=== PATIENT | male | born 1955 | race African-American/Black ===

== ENCOUNTER 2017-03-25 19:12 | Inpatient (IN) ==
[2017-03-25] MEDS ORDERED: cefTRIAXone 1,000 MG in SODIUM CHLORIDE 0.9% 100 ML IV STA (20:40)
[2017-03-25] MEDS ORDERED: methylPREDNISolone SOD SUC 125 MG/2 ML VIAL IV STA (20:40)
[2017-03-25] MEDS ORDERED: FUROSEMIDE 100 MG/10 ML VIAL IV STA (20:40)
[2017-03-25 20:49] LABS: Basophils % 0.4 % (0.0-0.8); Eosinophils # 0.1 10*3/uL (0.0-0.87); Eosinophils % 1.8 % (0.00-10.9); Hematocrit 36.2 VOL% (42.0-52.0); Hemoglobin 11.9 GM/DL (14.0-18.0); Immature Granulocytes % 0.4 %; Immature Granulocytes Absolute 0.02 #; Lymphocytes # 0.7 10*3/uL (1.4-4.0); Lymphocytes % 13.5 % (21.2-54.2); Mean Corpuscular HGB Conc 32.9 GM/DL (32-36); Mean Corpuscular Hemoglobin 31 PG (27-34); Mean Corpuscular Volume 93.5 FL (87-102); Mean Platelet Volume 11.3 FL (9.6-12.0); Monocytes # 0.9 10*3/uL (0.11-0.8); Monocytes % 17.4 % (1.7-12.7); Neutrophils # 3.3 10*3/uL (1.4-7.4); Neutrophils % 66.5 % (38.7-73.9); Platelet Count 125 T/CUMM (130-400); Red Blood Count 3.87 MC/CUMM (3.8-5.5); Red Cell Distribution Width 17.4 % (9.3-17.3)
[2017-03-25 20:55] LABS: INR 1.3; PT Patient Result 13.6 SECS
--- NOTE | 2017-03-25 20:56 | XRay Report ---
XR chest 1V portable Indication: Shortness of breath Comparison: Chest x-ray 03/22/2017 Technique: Portable AP chest was performed. Findings: Since the comparison study, there is been interval increase in opacity within the right infrahilar lung as well as interval development of right-sided pleural effusion. Size of the right-sided pleural effusion is moderate. Left lung is clear. Heart size is likely minimally enlarged. Impression: 1. Interval development of right-sided pleural effusion. 2. Airspace opacities right infrahilar lung could reflect evidence of infection and/or atelectasis. 03/25/2017 8:52 PM PROCEDURE INTERPRETED AT [facility] DEPARTMENT OF RADIOLOGY Final Report Signed by: Dr. Ray Mckay
[2017-03-25] MEDS ORDERED: ALBUTEROL 2.5 MG/3 ML NEB RESP TX SCH (21:00)
--- NOTE | 2017-03-25 21:01 | Emergency Department Note ---
IOmid Emily, am scribing for, and in the presence of, Luis Alberto Scruggs MD 20: 39. ISheba Charles R, MD, personally performed the services described in this documentation, ascribed by Kelly Anne in my presence, and it is both accurate and complete . Arrival - Arrival Chief Complaint: Shortness of Breath Stated Complaint: SOB ED Nursing Triage Note: Patient to triage with c/o SOB that started this morning. Patient is dialysis patient. Last dialysis was yesterday and was 4 lbs away from dry weight, and they told him to come for another round today but the dialysis clinic did not have any available seats when patient went to clinic. Patient's home health nurse instructed him to report to ED if SOB did not resolve. Lungs CTA in triage but patient is SOB, and worse when speaking. BLE edema noted. Mode of Arrival: Wheelchair Limitations: No Limitations Source: Patient Time Seen by Provider: 03/25/17 20:08 - History of Present Illness HPI Narrative: Pt is a 61 y/o male who came to ED with c/o SOB and wheezing that started Monday. Pt was at dialysis yesterday but didn't get a chance to talk with Dr. Almeida when he came through, per pt. Pt has associated sxs of orthopnea, heavy sensation with breathing, little output, and swelling in lower extremities and abdomen, but denies taking any blood thinners. Pt admits to still smoking, but has decreased in past couple days. Pt's home health nurse advised pt to come to ED if not resolved or worsened. Onset (ago): day(s) Consistency: constant Severity: moderate Severity scale (1-10): 5 Quality: fullness Allergies/Adverse Reactions: Allergies Allergy/AdvReac Type Severity Reaction Status Date / Time No Known Allergies Allergy Verified 03/25/17 19:25 Home Medications: Home Medications Medication Instructions Recorded Confirmed Type Carvedilol [Coreg] 25 mg PO BID #60 tablet 09/18/15 03/25/17 Rx Calcium Acetate 667 mg PO TID W/MEALS 07/25/16 03/25/17 History Insulin Regular, Human [NovoLIN R] 2 unit SUBCUT BID 10/24/16 03/25/17 History Review of System - Review of System 12 point system: reviewed and no additional remarkable complaints except as stated - Review of System Constitutional: Absent: fever Head/Ears/Nose/Throat: Absent: nasal drainage Respiratory: Present: respiratory distress (SOB), wheezing. Absent: cough Cardiovascular: Present: orthopnea, edema (in legs and abdomen). Absent: chest pain, syncope Gastrointestinal: Present: other (little output). Absent: abdominal pain, nausea, vomiting Musculoskeletal: Absent: back pain Skin: Absent: rash Neurological: Absent: headache Medical,Surgical,& Family Hx - Medical History Cardio: History of: CHF, Hypertension Psychological: History of: Psychiatric/Substance Abuse Tx Comment Only: Behavior Problems (PT VERY MAD WHEN HE LEFT PT STATED HE DID NOT TAKE ANY MEDS AT ALL) Neurology: No history of: Seizures HEENT: History of: Eye Problem (GLASSES) Endocrine: History of: Diabetes Mellitus (IDDM) (SLIDING SCALE INSULIN), Dyslipidemia No history of: Diabetes Mellitus (NIDDM) Renal: History of: Dialysis (MWF DIALYSIS), Renal Failure (ESRD- LEFT LOWER ARM AVF), Renal Problems (Recent Hematuria-Cyst Negative done 09/2016) Hematology: History of: Anemia - Surgical History Neurologic Surgeries: Patient denies: Neurologic Surgery Abdominal Surgeries: Patient denies: Appendectomy, Cholecystectomy Reproductive Surgeries: Surgical HX of;: Cystoscopy (09/2016) - Family History Family History: Reports;: Family Cancer (sister), Family Diabetes, Family Hypertension Denies;: Family Heart Disease, Family Psychiatric Problems, Family Stroke - Social History Smoking Status: Current every day smoker Frequency of Alcohol Use: None Type of Drug Use: None Marital Status: Single Functional capacity: independent ambulation Exam Vital Signs: Vital Signs Temperature 97.3 F L 03/25/17 19:16 Pulse Rate 110 H 03/25/17 19:16 Respiratory Rate 26 H 03/25/17 19:16 Blood Pressure 147/86 03/25/17 19:16 O2 Sat by Pulse Oximetry 95 03/25/17 19:16 - General General appearance: alert, in no apparent distress - Head Head exam: Present: atraumatic, normocephalic - Eye Eye exam: Present: PERRL, EOMI - ENT ENT exam: Present: mucous membranes moist. Absent: mucous membranes dry - Neck Neck exam: Present: full ROM. Absent: tenderness - Chest Chest inspection: Present: symmetric chest wall rise. Absent: tenderness - Respiratory Respiratory exam: Present: accessory muscle use (mildly), rales (wet ), wheezes - Cardiovascular Cardiovascular exam: Present: tachycardia, normal heart sounds - Abdominal Exam Abdominal exam: Present: soft, distention, normal bowel sounds. Absent: tenderness, guarding, rebound - Extremities Exam Extremities exam: Present: full ROM, pedal edema (+2 edema bilaterally with venous stasis dermatitis). Absent: tenderness - Neurological Exam Neurological exam: Present: alert, oriented X3, CN II-XII intact. Absent: motor sensory deficit - Psychiatric Psychiatric exam: Present: normal affect, normal mood - Skin Skin exam: Present: warm, dry Course - Consultations Consultation #1: Hospitalist will admit patient Time: 21:14 Results - Labs CBC & BMP: 03/25/17 20:02 03/25/17 20:02 Lab Results: I have reviewed the patients labs Labs: Laboratory Tests 03/25/17 20:02 WBC 5.0 D RBC 3.87 Hgb 11.9 L Hct 36.2 L RDW 17.4 H Plt Count 125 L Lymph % (Auto) 13.5 L Moffat % (Auto) 17.4 H Lymph # (Auto) 0.7 L Moffat # (Auto) 0.9 H - Diagnostic Findings Procedure: Chest x-ray: report reviewed by me (1. Interval development of right- sided pleural effusion. 2. Airspace opactities right infrahilar lung could reflect evidence of infection and/or atelectasis.) Disposition Clinical Impression: Community acquired pneumonia, Pleural effusion, right, ESRD (end stage renal disease) on dialysis, COPD (chronic obstructive pulmonary disease), Acute dyspnea Case discussed with: patient, patient's family Disposition: Still a Patient Condition: Stable Time of Disposition: 21:16
[2017-03-25] MEDS ORDERED: cefTRIAXone 1,000 MG VIAL ONE (21:03)
[2017-03-25] MEDS ORDERED: FUROSEMIDE 40 MG/4 ML VIAL ONE (21:03)
[2017-03-25] MEDS ORDERED: FUROSEMIDE 20 MG/2 ML VIAL ONE (21:03)
[2017-03-25] MEDS ORDERED: methylPREDNISolone SOD SUC 125 MG/2 ML VIAL ONE (21:03)
[2017-03-25 21:07] LABS: Albumin 2.8 G/DL (3.4-5.0); Bilirubin,Total 1.7 MG/DL (0.2-1.0); Calcium 8.4 MG/DL (8.5-10.1); Magnesium 2.4 MG/DL (1.8-2.4); Osmolality,Calculated 281.1 MOS/KG (273-304); Potassium 3.7 MMOL/L (3.5-5.1); Total Protein 7.6 G/DL (6.4-8.3); Troponin I Only 0.035 NG/ML (0.00-0.045)
[2017-03-25 21:18] LABS: Band Neutrophils 1 % (0-10); Eosinophils 1 % (0-10); Lymphocytes 16 % (20-55); Platelet Estimate Adequate; Polychromasia Few; Segmented Neutrophils 67 % (50-85); Total Cells Counted 100
[2017-03-25] MEDS ORDERED: ONDANSETRON 4 MG/2 ML VIAL IV PRN (21:37)
[2017-03-25] MEDS ORDERED: GLUCAGON 1 MG VIAL IM PRN (21:45)
[2017-03-25] MEDS ORDERED: DEXTROSE 50% 25 GM/50 ML SYRINGE IV PRN (21:45)
[2017-03-25] MEDS ORDERED: FUROSEMIDE 100 MG/10 ML VIAL IV ONE (21:48)
--- NOTE | 2017-03-25 22:00 | Hospitalist History & Physical ---
Assessment and Plan (1) Pleural effusion, right Status: Acute Assessment and plan: Patient has a right-sided effusion which is significant worse from last 3 days. Patient has received antibiotics in the ER but I do not have strong suspicion of any infection. Differential would be volume overload with the end-stage renal disease or cardiac decompensation. Noted patient has history of severe cardiac disease based on echo which was done in 2014 I will consult renal for dialysis to see if they can challenge the weight and patient tolerates. I would also repeat troponin in the morning and consult cardiology due to history of cardiac disease and need to be have follow-up. If patient symptoms and effusion does not get better if he may need thoracentesis. Patient followed by hospice in the morning to make decision with the cardiology and renal service Current Visit: Yes (2) Acute on chronic systolic CHF (congestive heart failure) Status: Acute Assessment and plan: As mentioned cardiology been consulted. I will cut down the dose of carvedilol to 50% of home dose due to possible acute cardiac decompensation. I will give a dose of metolazone and Lasix but patient does not have good residual renal function would hope to get some response if possible Current Visit: No (3) Abnormal LFTs Status: Acute Assessment and plan: We will order for repeat LFTs. Patient could have some passive liver congestion from volume overload Current Visit: Yes (4) Diabetes mellitus Status: Chronic Assessment and plan: Also patient has history of diabetes mellitus his blood sugars been controlled we will continue monitor blood sugar with this as needed short-acting insulin Current Visit: Yes (5) ESRD (end stage renal disease) on dialysis Status: Chronic Assessment and plan: Consult renal for hemodialysis Current Visit: Yes History of Present Illness Chief complaint: Dyspnea History of present illness: Mr. Castro is a 61 year old male with history of hypertension, diabetes mellitus,Psychiatric/Substance Abuse Tx, and surgery disease and CHF. His last echo I could find was in 2014 and reported to have left ventricular ejection fraction of 35-40% with the moderate TR and evidence of fever early elevated right-sided pressures with estimated RV peak systolic pressure of 73 mmHg. He is on dialysis via left upper extremity AV fistula he is on Monday dialysis schedule and was dialyzed yesterday. Although he had 3-4 kg about dry weight when he left the dialysis on Monday he was at his dry weight on Monday after dialysis. He has been having short of breath for last few days and actually saw an emergency room 2 days ago with weakness. He also has swelling of the lower extremities noted which he reports for the last 2 weeks he denies any cough fever or chest pain no nausea vomiting but had diarrhea 3 days ago when he was in emergency room but has resolved. In ER he had evaluation with x-ray which noted to have intervertebral development of right pleural effusion and although on chest x-ray there was findings suggestive of mild cardiac decompensation on 03/22/2017, there was only mild if any effusion at that time. He has a white count of 5.0 and BNP level of 3420. Troponin is 0.035 I was asked to admit the patient. Home Medications Medication Instructions Recorded Confirmed Type Carvedilol [Coreg] 25 mg PO BID #60 tablet 09/18/15 03/25/17 Rx Calcium Acetate 667 mg PO TID W/MEALS 07/25/16 03/25/17 History Insulin Regular, Human [NovoLIN R] 2 unit SUBCUT BID 10/24/16 03/25/17 History Allergies Allergy/AdvReac Type Severity Reaction Status Date / Time No Known Allergies Allergy Verified 03/25/17 19:25 Medical,Surgical,& Family Hx - Medical History Cardio: History of: CHF, Hypertension Psychological: History of: Psychiatric/Substance Abuse Tx Comment Only: Behavior Problems (PT VERY MAD WHEN HE LEFT PT STATED HE DID NOT TAKE ANY MEDS AT ALL) Neurology: No history of: Seizures HEENT: History of: Eye Problem (GLASSES) Endocrine: History of: Diabetes Mellitus (IDDM) (SLIDING SCALE INSULIN), Dyslipidemia No history of: Diabetes Mellitus (NIDDM) Renal: History of: Dialysis (MWF DIALYSIS), Renal Failure (ESRD- LEFT LOWER ARM AVF), Renal Problems (Recent Hematuria-Cyst Negative done 09/2016) Hematology: History of: Anemia - Surgical History Neurologic Surgeries: Surgical HX of: Neurologic Surgery Abdominal Surgeries: Patient denies: Appendectomy, Cholecystectomy Reproductive Surgeries: Surgical HX of;: Cystoscopy (09/2016) Additional Surgical History: Left AV fistula in upper extremity - Family History Family History: Reports;: Family Cancer (sister), Family Diabetes, Family Hypertension Denies;: Family Heart Disease, Family Psychiatric Problems, Family Stroke - Social History Smoking Status: Current every day smoker Frequency of Alcohol Use: None Type of Drug Use: None Review of systems: Comprehensive review of systems done and negative unless indicated in HPI Exam - Constitutional Vitals: Period Temp Pulse Resp BP Sys/Figueroa Pulse Ox Last 24 Hr 97.3 F-97.3 F 104-110 22-26 147-147/86-86 94-95 General appearance: mild distress, over weight, other - Head Head exam: Present: normal inspection, normocephalic, atraumatic - Eye Eye exam: Present: EOMI Pupils: Present: LEELA, normal accommodation - ENT ENT exam: Present: normal oropharynx - Neck Neck exam: Present: other (Supple) - Respiratory Respiratory exam: Present: rales (Decreased air entry on right side with the bilateral crepitations especially right side), other - Cardiovascular Cardiovascular exam: Present: JVD (JVP elevated), regular rate and rhythm, tachycardia - GI/Abdominal GI/Abdominal exam: Present: normal bowel sounds, soft. Absent: distended, tenderness - Extremities Exam Extremities exam: Present: edema (Bilateral edema of lower extremities present ) - Neurological Exam Neurological exam: Present: alert, oriented X3 Results - Labs CBC & BMP: 03/25/17 20:02 03/25/17 20:02 Lab Results: I have reviewed the past 24 hour labs
[2017-03-25] MEDS ORDERED: metOLazone 5 MG TABLET PO STA (22:16)
[2017-03-25 22:40] LABS: ABG HCO3 24.3 MMOL/L (20-26); ABG Oxygen Saturation 91.1 % (95-100); ABG PCO2 42.9 MM HG (35-48); ABG PH 7.371 (7.35-7.45); ABG PO2 60.5 MM HG (80-95); ABG TCO2 25.6 MMOL/L (23-27)
[2017-03-26] MEDS: HEPARIN 5,000 UNIT/1 ML VIAL SUBCUT SCH ×2 (00:31→12:16)
[2017-03-26 05:48] LABS: Basophils % 0.2 % (0.0-0.8); Hematocrit 37.4 VOL% (42.0-52.0); Hemoglobin 12.1 GM/DL (14.0-18.0); Immature Granulocytes % 0.5 %; Immature Granulocytes Absolute 0.03 #; Lymphocytes # 0.2 10*3/uL (1.4-4.0); Lymphocytes % 3.3 % (21.2-54.2); Mean Corpuscular HGB Conc 32.4 GM/DL (32-36); Mean Corpuscular Hemoglobin 30 PG (27-34); Mean Corpuscular Volume 93.5 FL (87-102); Mean Platelet Volume 10.6 FL (9.6-12.0); Monocytes # 0.1 10*3/uL (0.11-0.8); Monocytes % 1.6 % (1.7-12.7); Neutrophils # 5.4 10*3/uL (1.4-7.4); Neutrophils % 94.4 % (38.7-73.9); Platelet Count 132 T/CUMM (130-400); Red Cell Distribution Width 17.2 % (9.3-17.3); White Blood Count 5.7 T/CUMM (4-12)
[2017-03-26 06:45] LABS: Albumin 3.1 G/DL (3.4-5.0); Calcium 8.7 MG/DL (8.5-10.1); Total Protein 8.1 G/DL (6.4-8.3); Troponin I Only 0.027 NG/ML (0.00-0.045)
[2017-03-26 06:59] LABS: Osmolality,Calculated 284.5 MOS/KG (273-304)
--- NOTE | 2017-03-26 07:24 | EKG Report ---
Stationary ECG Study [facility] ER Test Date: 03/25/2017 7:36:56 PM Pat Name: SANGEETHA BOWMAN Department: Room: 284 Gender: M [employer]inter: : [id number] Requested by: Luis Alberto Muñoz Order Number: [id number] Sandy MD: JENNY LINDSAY Intervals [place] Rate: 107 P: 72 CA: 145 QRS: 73 QRSD: 89 T: 89 QT: 333 QTc: 395 Interpretive Statements SINUS TACHYCARDIA OTHERWISE NORMAL TRACING Electronically Signed On 03-26-17 16:08:40 CDT by EJNNY LINDSAY [email or web address]
[2017-03-26 08:01] LABS: Hypochromasia 1+; Lymphocytes 3 % (20-55); Ovalocytes Slight; Platelet Estimate Normal; Segmented Neutrophils 94 % (50-85); Total Cells Counted 100
[2017-03-26] MEDS: INSULIN LISPRO 100 UNIT/ML SUBCUT SCH ×4 (08:27→21:27)
[2017-03-26] MEDS: CARVEDILOL 12.5 MG TABLET PO SCH ×2 (08:27→21:28)
[2017-03-26] MEDS: CALCIUM ACETATE 667 MG CAPSULE PO SCH ×3 (08:27→18:31)
--- NOTE | 2017-03-26 09:42 | Hospitalist Progress Note ---
Assessment and Plan - Time spent with patient Time spent with patient: Less than 30 minutes (1) Pleural effusion, right Status: Acute Assessment and plan: He has had increasing dyspnea but no chest discomfort. He denies any fever and had minimal cough with some blood-streaked sputum. Will await cardiology and nephrology recommendations. Feel free to consult pulmonary if felt indicated. Current Visit: Yes (2) CHF (congestive heart failure) Status: Acute Assessment and plan: Cardiology has been consulted. Will continue current medical care. Current Visit: No Qualifiers: Congestive heart failure type: systolic Congestive heart failure chronicity : acute on chronic Qualified Code(s): I50.23 - Acute on chronic systolic ( congestive) heart failure (3) ESRD (end stage renal disease) on dialysis Status: Chronic Assessment and plan: Have consulted nephrology for their evaluation and recommendations. Current Visit: No (4) Hypertension Status: Chronic Assessment and plan: Blood pressure somewhat elevated at this time. We will add topical nitrates while obtaining serial cardiac isoenzymes. Will make further adjustments as needed. Cardiology has been consulted as well. Current Visit: No Qualifiers: Hypertension type: essential hypertension Qualified Code(s): I10 - Essential (primary) hypertension (5) Diabetes mellitus Status: Chronic Assessment and plan: Continue current regimen with Accu-Cheks and sliding scale insulin as ordered. Current Visit: No Qualifiers: Diabetes mellitus type: type 2 Chronic kidney disease stage: on chronic dialysis Hospitalist: Subjective Interval history: Chart is been reviewed and patient examined. Patient denies any chest pain at this time but has continued increasing shortness of breath. He states he has had increasing lower extremity edema. He had dialysis on Monday and states they wanted to dialyze him on Monday as well however they had no chairs available at the dialysis center. He denies any fevers or chills he has had a minimal cough with some blood-streaked sputum. Exam - Constitutional Vitals: Period Temp Pulse Resp BP Sys/Figueroa Pulse Ox Last 24 Hr 96.2 F-98.2 F 100-110 18-26 142-186/86-101 89-99 General appearance: no acute distress - Head Head exam: Present: normocephalic, atraumatic - Eye Eye exam: Present: EOMI Pupils: Present: LEELA - ENT ENT exam: Present: normal exam - Neck Neck exam: Present: normal inspection - Respiratory Respiratory exam: Present: other (Lungs fairly clear without any audible rales rhonchi or wheeze he does have decreased breath sounds with dullness to percussion in the right lower lung field) - Cardiovascular Cardiovascular exam: Present: regular rate and rhythm, tachycardia. Absent: rubs, systolic murmur - GI/Abdominal GI/Abdominal exam: Present: normal bowel sounds, soft. Absent: mass, tenderness - Extremities Exam Extremities exam: Present: edema (2-3+ pitting edema of lower extremities bilateral). Absent: calf tenderness - Neurological Exam Neurological exam: Present: alert, oriented X3, CN II-XII intact. Absent: motor sensory deficit - Psychiatric Psychiatric exam: Present: normal affect, normal mood. Absent: agitated, anxious - Skin Skin exam: Present: warm, dry. Absent: erythema, rash Results - Labs CBC & BMP: 03/26/17 05:12 03/26/17 05:12 Lab Results: I have reviewed the past 24 hour labs - EKG EKG shows: tachycardia, sinus rhythm - Diagnostic Findings Procedure: Chest x-ray: report reviewed by me
--- NOTE | 2017-03-26 11:29 | Nephrology Consult Note ---
History of Present Illness Chief complaint: S OB, ESRD History of present illness: Mr. Castro is a 61 year old male with ESRD. He last dialyzed on Monday. He presented with a 3 day history of shortness of breath. He has a cough productive of some blood-streaked sputum. He denies pleuritic chest pain. He denies fever. He has had orthopnea. Home Medications Medication Instructions Recorded Confirmed Type Carvedilol [Coreg] 25 mg PO BID #60 tablet 09/18/15 03/25/17 Rx Calcium Acetate 667 mg PO TID W/MEALS 07/25/16 03/25/17 History Insulin Regular, Human [NovoLIN R] 2 unit SUBCUT BID 10/24/16 03/25/17 History Allergies Allergy/AdvReac Type Severity Reaction Status Date / Time No Known Allergies Allergy Verified 03/25/17 19:25 Medical,Surgical,& Family Hx - Medical History Cardio: History of: CHF, Hypertension Psychological: History of: Psychiatric/Substance Abuse Tx Comment Only: Behavior Problems (PT VERY MAD WHEN HE LEFT PT STATED HE DID NOT TAKE ANY MEDS AT ALL) Neurology: No history of: Seizures HEENT: History of: Eye Problem (GLASSES) Endocrine: History of: Diabetes Mellitus (IDDM) (SLIDING SCALE INSULIN), Dyslipidemia No history of: Diabetes Mellitus (NIDDM) Renal: History of: Dialysis (MWF DIALYSIS), Renal Failure (ESRD- LEFT LOWER ARM AVF), Renal Problems (Recent Hematuria-Cyst Negative done 09/2016) Hematology: History of: Anemia - Surgical History Neurologic Surgeries: Surgical HX of: Neurologic Surgery Abdominal Surgeries: Patient denies: Appendectomy, Cholecystectomy Reproductive Surgeries: Surgical HX of;: Cystoscopy (09/2016) - Family History Family History: Reports;: Family Cancer (sister), Family Diabetes, Family Hypertension Denies;: Family Heart Disease, Family Psychiatric Problems, Family Stroke - Social History Smoking Status: Current every day smoker Frequency of Alcohol Use: None Type of Drug Use: None Review of Systems 12 point system: reviewed and no additional remarkable complaints except as stated Exam - Vital Signs Vital signs: Period Temp Pulse Resp BP Sys/Figueroa Pulse Ox Last 24 Hr 96.2 F-98.2 F 100-110 18-26 142-186/86-120 89-99 Exam: Gen.: Alert and oriented x3. ENT: Pupils equal round reactive to light. EOMs intact. Mucous membranes moist. Neck: Supple. No JVD or bruit. Cardiovascular: Regular rate and rhythm. No murmur rub or gallop Lungs: Decreased breath sounds right base. Left clear Abdomen: Soft. Nontender. Positive bowel sounds. No organomegaly Extremities: 2+ edema Results - Labs CBC & BMP: 03/26/17 05:12 03/26/17 05:12 Assessment and Plan (1) ESRD (end stage renal disease) on dialysis Status: Chronic Assessment and plan: 61-year-old man with: * ESRD. Last dialysis Monday * Volume overload. He has right pleural effusion, orthopnea and mild hemoptysis. He has significant lower extremity edema. He will be dialyzed today * Diabetes mellitus * Hypertension Current Visit: Yes (2) Volume overload Status: Acute Current Visit: Yes (3) Acute dyspnea Status: Acute Current Visit: Yes (4) Pleural effusion, right Status: Acute Current Visit: Yes (5) Diabetes mellitus Status: Chronic Current Visit: Yes (6) CHF (congestive heart failure) Status: Acute Current Visit: No Qualifiers: Congestive heart failure type: systolic Congestive heart failure chronicity : acute on chronic Qualified Code(s): I50.23 - Acute on chronic systolic ( congestive) heart failure (7) Essential (primary) hypertension Status: Acute Current Visit: No
[2017-03-26] MEDS: NITROGLYCERIN 2% OINT 1 INCH/GM PACK TOP SCH ×2 (12:17→18:32)
--- NOTE | 2017-03-26 16:44 | Cardiology Consult Note ---
History of Present Illness - Data of Consult Patient: new to practice Consult date: 03/26/17 - Consult Narrative History of present illness: cardiology consult 61-year-old man admitted with volume overload/CHF. BNP level 3420. Chest x- ray shows cardiomegaly with large right effusion on right and infiltrate. EKG shows sinus tach with diffuse ST-T wave changes. Patient has chronic renal failure on dialysis. He was dialyzed every Monday and Monday for 4 hours. He has not missed any recent dialysis runs. He is markedly dyspneic. Blood pressure 160/100. Pulse 108 and regular. Respirations 26. O2 sat 92% on 2 L. Chronic hypertension, taking carvedilol 25 g twice daily. Diabetic taking Novolin insulin 2 units twice daily. The patient is an active smoker and has been smoking since age 19. Former heavy alcohol abuse. Patient states he quit alcohol 3 months ago. Long history of cocaine abuse. Patient snorts cocaine . He last used cocaine 3 months ago. Has history of diverticulitis. No history of heart attack. 5 feet 11 tall 235 pounds. No history of stroke. Surgery status post right great toe amputation, status post cholecystectomy. Echo Doppler done June 2015 showed ejection fraction of 40% with tidal left atrium and 2+ MR and severe TR. Lab data White count 5.7 hemoglobin 12.1 hematocrit 37.4 MCV 93 platelet count 132,000 INR 1.3 sodium 132 potassium 4.0 chloride 97 CO2 20 BUN 52 creatinine 8.10 glucose 224 magnesium 2.4 total bili 2.0 AST 30 ALT 18 alk phos 205 negative troponin 2 BNP level 3004 and 20 albumin 3.1 Blood pressure 160/100 pulse 108 and tachypneic. Patient appears chronically ill and much older than stated age. Neck veins are distended. No carotid bruits. Decreased breath sounds with diffuse crackles right greater than left Regular rhythm with soft systolic murmur lower sternal border Abdomen obese soft benign. 3+ edema to the thigh distal pulses not palpable status post right great toe amputation Impression Chronic renal failure Congestive heart failure/volume overload BNP level 3420 Type 2 diabetes Chronic hypertension Active smoker Elevated bilirubin and alk phos probably secondary right heart failure Cardiomegaly by chest x-ray Cardiomyopathy History of EtOH abuse History of cocaine abuse Plan Dialysis Echo Doppler Prognosis poor BP meds for afterload reduction as tolerated CC: Fred Scot Carpenter, M - Home Medications and Allergies Home Medications: Home Medications Medication Instructions Recorded Confirmed Type Carvedilol [Coreg] 25 mg PO BID #60 tablet 09/18/15 03/25/17 Rx Calcium Acetate 667 mg PO TID W/MEALS 07/25/16 03/25/17 History Insulin Regular, Human [NovoLIN R] 2 unit SUBCUT BID 10/24/16 03/25/17 History Allergies/Adverse Reactions: Allergies Allergy/AdvReac Type Severity Reaction Status Date / Time No Known Allergies Allergy Verified 03/25/17 19:25 Medical,Surgical,& Family Hx - Medical History Cardio: History of: CHF, Hypertension Psychological: History of: Psychiatric/Substance Abuse Tx Comment Only: Behavior Problems (PT VERY MAD WHEN HE LEFT PT STATED HE DID NOT TAKE ANY MEDS AT ALL) Neurology: No history of: Seizures HEENT: History of: Eye Problem (GLASSES) Endocrine: History of: Diabetes Mellitus (IDDM) (SLIDING SCALE INSULIN), Dyslipidemia No history of: Diabetes Mellitus (NIDDM) Renal: History of: Dialysis (MWF DIALYSIS), Renal Failure (ESRD- LEFT LOWER ARM AVF), Renal Problems (Recent Hematuria-Cyst Negative done 09/2016) Hematology: History of: Anemia - Surgical History Neurologic Surgeries: Surgical HX of: Neurologic Surgery Abdominal Surgeries: Patient denies: Appendectomy, Cholecystectomy Reproductive Surgeries: Surgical HX of;: Cystoscopy (09/2016) - Family History Family History: Reports;: Family Cancer (sister), Family Diabetes, Family Hypertension Denies;: Family Heart Disease, Family Psychiatric Problems, Family Stroke - Social History Smoking Status: Current every day smoker Frequency of Alcohol Use: None Type of Drug Use: None Physical Examination Vital Signs Temp Pulse Resp BP Pulse Ox 97.3 F L 110 H 26 H 147/86 95 03/25/17 19:16 03/25/17 19:16 03/25/17 19:16 03/25/17 19:16 03/25/17 19:16 Result/EKG - Labs CBC & BMP: 03/26/17 05:12 03/26/17 05:12 Labs: Laboratory Results - last 24 hr 03/25/17 03/25/17 03/25/17 20:02 20:02 20:02 WBC 5.0 D RBC 3.87 Hgb 11.9 L Hct 36.2 L MCV 93.5 MCH 31 MCHC 32.9 RDW 17.4 H Plt Count 125 L MPV 11.3 Neut % (Auto) 66.5 Lymph % (Auto) 13.5 L Kingman % (Auto) 17.4 H Eos % (Auto) 1.8 Baso % (Auto) 0.4 Neut # (Auto) 3.3 Lymph # (Auto) 0.7 L King[place] # (Auto) 0.9 H Eos # (Auto) 0.1 Baso # (Auto) 0.0 Total Counted 100 Immature Gran % 0.4 Nucleated RBC % 0.0 Immature Gran # 0.02 Segmented Neutrophils 67 Band Neutrophils 1 Lymphocytes 16 L Monocytes 15 Eosinophils 1 Nucleated RBCs # 0.00 Platelet Estimate Adequate Immature Plt Fraction 0.0 Polychromasia Few Hypochromasia Ovalocytes Morphology Comment INR 1.3 PT Patient/Control Mix 13.6 ABG pH ABG pCO2 ABG pO2 ABG HCO3 ABG Total CO2 ABG O2 Saturation ABG Base Excess Sodium 135 L Potassium 3.7 Chloride 98 Carbon Dioxide 27 Anion Gap 13.7 BUN 46 H Creatinine 7.70 H GFR Calculation 10 BUN/Creatinine Ratio 5.00 L Glucose 102 POC Glucose Calculated Osmolality 281.1 Calcium 8.4 L Magnesium 2.4 Total Bilirubin 1.70 H AST 28 ALT 15 L Alkaline Phosphatase 184 H Troponin I 0.035 B-Natriuretic Peptide Total Protein 7.6 Albumin 2.8 L Globulin 4.8 H Albumin/Globulin Ratio 0.5 L 03/25/17 03/25/17 03/26/17 20:02 22:30 05:12 WBC 5.7 RBC 4.00 Hgb 12.1 L Hct 37.4 L MCV 93.5 MCH 30 MCHC 32.4 RDW 17.2 Plt Count 132 MPV 10.6 Neut % (Auto) 94.4 H Lymph % (Auto) 3.3 L Kingman % (Auto) 1.6 L Eos % (Auto) 0.0 Baso % (Auto) 0.2 Neut # (Auto) 5.4 Lymph # (Auto) 0.2 L Kingman # (Auto) 0.1 L Eos # (Auto) 0.0 Baso # (Auto) 0.0 Total Counted 100 Immature Gran % 0.5 Nucleated RBC % 0.0 Immature Gran # 0.03 Segmented Neutrophils 94 H Band Neutrophils Lymphocytes 3 L Monocytes 3 Eosinophils Nucleated RBCs # 0.00 Platelet Estimate Normal Immature Plt Fraction 0.0 Polychromasia Hypochromasia 1+ Ovalocytes Slight Morphology Comment INR PT Patient/Control Mix ABG pH 7.371 ABG pCO2 42.9 ABG pO2 60.5 L ABG HCO3 24.3 ABG Total CO2 25.6 ABG O2 Saturation 91.1 L ABG Base Excess -1.0 Sodium Potassium Chloride Carbon Dioxide Anion Gap BUN Creatinine GFR Calculation BUN/Creatinine Ratio Glucose POC Glucose Calculated Osmolality Calcium Magnesium Total Bilirubin AST ALT Alkaline Phosphatase Troponin I B-Natriuretic Peptide 3420 H Total Protein Albumin Globulin Albumin/Globulin Ratio 03/26/17 03/26/17 03/26/17 05:12 07:22 11:49 WBC RBC Hgb Hct MCV MCH MCHC RDW Plt Count MPV Neut % (Auto) Lymph % (Auto) Kingman % (Auto) Eos % (Auto) Baso % (Auto) Neut # (Auto) Lymph # (Auto) Kingman # (Auto) Eos # (Auto) Baso # (Auto) Total Counted Immature Gran % Nucleated RBC % Immature Gran # Segmented Neutrophils Band Neutrophils Lymphocytes Monocytes Eosinophils Nucleated RBCs # Platelet Estimate Immature Plt Fraction Polychromasia Hypochromasia Ovalocytes Morphology Comment INR PT Patient/Control Mix ABG pH ABG pCO2 ABG pO2 ABG HCO3 ABG Total CO2 ABG O2 Saturation ABG Base Excess Sodium 132 L Potassium 4.0 Chloride 97 L Carbon Dioxide 20 L Anion Gap 19.0 H BUN 52 H Creatinine 8.10 H GFR Calculation 10 BUN/Creatinine Ratio 6.00 Glucose 224 H POC Glucose 255 H 268 H Calculated Osmolality 284.5 Calcium 8.7 Magnesium Total Bilirubin 2.00 H AST 30 ALT 18 Alkaline Phosphatase 205 H Troponin I 0.027 B-Natriuretic Peptide Total Protein 8.1 Albumin 3.1 L Globulin 5.0 H Albumin/Globulin Ratio 0.6 L
--- NOTE | 2017-03-26 17:37 | ECHO Report ---
Jeff Castro Exam Date: 03/26/2017 16:11 Referring Physician: Technologist: Maria Isabel Trujillo RDCS Age: 61 Ht (in): 71 Wt (lb): 233 Gender: M Exam Location: [facility] Echo Indications: Dyspnea, unspecified, Pleural effusion, not elsewhere classified, Acute on chronic systolic (congestive) heart failure, Abnormal LFTs, IDDM, End stage renal disease BP: 150 / 105 HR: 87 Rhythm: Sinus Technical Quality: IMPRESSIONS Moderate global hypokinesis EF 30-35 %. Mild left ventricular hypertrophy. Grade I/IV diastolic dysfunction (abnormal relaxation filling pattern), normal to mildly elevated filling pressures. The right ventricle is normal in size and function. Moderately increased right atrial size. Moderately increased left atrial size. Mildly thickened mitral valve. Moderate mitral valve regurgitation. Aortic valve sclerosis. Trace aortic valve regurgitation. Severe tricuspid valve regurgitation. FQG88-95 mmHG. Mild pulmonary valve regurgitation. Normal pericardium without effusion. Normal ascending aorta dimension. MEASUREMENTS (Male / Female) Normal Values 2D ECHO LV Diastolic Diameter PLAX 4.8 cm 4.2 - 5.9 / 3.9 - 5.3 cm LV Systolic Diameter PLAX 4.0 cm LV Fractional Shortening PLAX 17.3 % IVS Diastolic Thickness 1.3 cm 0.6 - 1.0 / 0.6 - 0.9 cm LVPW Diastolic Thickness 1.3 cm 0.6 - 1.0 / 0.6 - 0.9 cm RV Internal Dim ED PLAX 4.4 cm Aortic Root Diameter 3.1 cm LA Systolic Diameter LX 4.5 cm 3.0 - 4.0 / 2.7 - 3.8 cm DOPPLER TR Peak Velocity 377.0 cm/s TR Peak Gradient 56.9 mmHg FINDINGS Left Ventricle moderate global hypokinesis EF 30-35 %. mild left ventricular hypertrophy. Grade I/IV diastolic dysfunction (abnormal relaxation filling pattern), normal to mildly elevated filling pressures. Right Ventricle The right ventricle is normal in size and function. Right Atrium Moderately increased right atrial size. Left Atrium Moderately increased left atrial size. Mitral Valve Mildly thickened mitral valve. Moderate mitral valve regurgitation. Aortic Valve Aortic valve sclerosis. Trace aortic valve regurgitation. . Tricuspid Valve Morphologically normal tricuspid valve. Severe tricuspid valve regurgitation. VWN42-50 mmHG. Pulmonic Valve Morphologically normal pulmonic valve. Mild pulmonary valve regurgitation. Pericardium Normal pericardium without effusion. Aorta Normal ascending aorta dimension. Sergio Crow (Electronically Signed) Final Date: 26 March 2017 17:36
[2017-03-26 20:12] LABS: Hepatitis A Ab IgM Quant 0.13 Index; Hepatitis A Ab IgM Result Negative (Negative); Hepatitis B Core IgM Quant < 0.05 Index; Hepatitis B Core IgM Result Negative (Negative); Hepatitis B Surface Ag Quant 0.12 Index; Hepatitis B Surface Ag Result Negative (Negative); Hepatitis C Virus Ab Quant 0.14 Index; Hepatitis C Virus Ab Result Negative (Negative)
--- NOTE | 2017-03-26 21:08 | Dialysis Note ---
Dialysis Note - Dialysis Note History of dialysis. Blood pressure mildly elevated. This should improve with volume removal
[2017-03-27] MEDS: HEPARIN 5,000 UNIT/1 ML VIAL SUBCUT SCH (00:37)
[2017-03-27] MEDS: NITROGLYCERIN 2% OINT 1 INCH/GM PACK TOP SCH ×5 (01:05→23:43)
[2017-03-27] MEDS: INSULIN LISPRO 100 UNIT/ML SUBCUT SCH ×4 (08:47→21:31)
[2017-03-27] MEDS: CALCIUM ACETATE 667 MG CAPSULE PO SCH ×3 (08:47→17:22)
[2017-03-27] MEDS: CARVEDILOL 12.5 MG TABLET PO SCH ×2 (08:47→21:32)
--- NOTE | 2017-03-27 09:03 | Nephrology Progress Note ---
Nephrology - PN: Subj Interval history: Mr. Castro is seen in follow-up of his end-stage renal disease and gross fluid overload. He has considerable edema well up to his waist. He has a significant right pleural effusion and an ejection fraction of 30-35% by echocardiogram. We have talked with him again about his fluid intake. This is been a chronic problem and is never been able to control fluid intake. We are going to ultrafilter him again today for 4-5 kg of volume removal. He is probably 20 kg above a reasonable dry weight Exam (PN)-Nephrology - Vital Signs Vital signs: Period Temp Pulse Resp BP Sys/Figueroa Pulse Ox Last 24 Hr 96.2 F-98.5 F 74-98 16-20 129-164/77-118 91-98 - Lab 03/26/17 05:12 03/26/17 05:12 Most recent lab results ABG pH 7.371 (7.35-7.45) 03/25/17 22:30 ABG pCO2 42.9 MM HG (35-48) 03/25/17 22:30 ABG pO2 60.5 MM HG (80-95) L 03/25/17 22:30 ABG HCO3 24.3 MMOL/L (20-26) 03/25/17 22:30 ABG O2 Saturation 91.1 % (95-100) L 03/25/17 22:30 Calcium 8.7 MG/DL (8.5-10.1) 03/26/17 05:12 Magnesium 2.4 MG/DL (1.8-2.4) 03/25/17 20:02
[2017-03-27 10:27] LABS: INR 1.4; PT Patient Result 15.2 SECS
--- NOTE | 2017-03-27 10:42 | XRay Report ---
History: Right pleural effusion Date: 03/27/2017 Study: Chest x-ray AP portable Comparison exam: March 25, 2017 There is opacification of the lower 75% of the right hemithorax related to a large right-sided pleural effusion and presumably some underlying passive atelectasis of the right lung. The left lung is clear. The cardiomediastinal silhouette is grossly unchanged. Osseous structures are similar. Impression: Massive right pleural effusion which is increased in size since the previous study PROCEDURE INTERPRETED AT [facility] DEPARTMENT OF RADIOLOGY Final Report Signed by: Dr. Silvia Hunter
--- NOTE | 2017-03-27 11:05 | Hospitalist Progress Note ---
Assessment and Plan (1) Acute respiratory failure Status: Acute Assessment and plan: multifactorial may have hospital acquired pneumonia but does have CHF exacerbation in her significant right pleural effusion, will start him on Zosyn and had duonebs. Move to ICU Current Visit: Yes (2) Acute on chronic systolic CHF (congestive heart failure) Status: Acute Assessment and plan: Needs urgent dialysis Current Visit: No (3) Cardiomyopathy, idiopathic Status: Chronic Assessment and plan: echo ef 30% with mod MVR and severe TVR with pap 70 and diastolic dysfunction Current Visit: No (4) Essential (primary) hypertension Status: Acute Assessment and plan: cont coreg 12.5 mg po bid Current Visit: No (5) Moderate to severe pulmonary hypertension Status: Chronic Assessment and plan: confirmed by echo Current Visit: No (6) End stage renal disease on dialysis Problem details: No acute indication for HD today. Probably 6-7 kg above true dry weight. Status: Chronic Assessment and plan: dialysis m, w, f with last dialysis yesterday Current Visit: No (7) Anemia in chronic kidney disease (CKD) Status: Acute Assessment and plan: hgb stable will monitor, started protonix Current Visit: No (8) Type 2 diabetes mellitus Status: Acute Assessment and plan: lantus 5 units daily Current Visit: No (9) Pleural effusion, right Status: Acute Assessment and plan: large right pleural effusion, thoracentesis removed only one liter, will need a drain placed in am Current Visit: Yes Hospitalist: Subjective Interval history: Soft patient just morning and he was in respiratory distress breathing about 40 times a minute. Chest x-ray from the showed significant right pleural effusion. Stat chest x-ray was ordered. Interventional radiology to continue on for thoracentesis and possible drain. Patient will then be moved to the CCU. He needs urgent dialysis today. Dr. Almeida has already seen him. Patient has pitting edema up his thighs. He also has some frothy yellow bloody sputum and is not on any antibiotics at this time. I have started him on Zosyn and moved him to the CCU. we started him on a fluid restriction of 1500 ml. Exam - Constitutional Vitals: Period Temp Pulse Resp BP Sys/Figueroa Pulse Ox Last 24 Hr 96.2 F-98.5 F 62-98 16-25 126-183/70-118 91-100 Exam: Heart Rate-[Tachy ] Lungs-[rhonchi with very little air movement on the right ] GI-[+bs soft, NT] Ext-[3+ pitting edema up his thighs] Neuro [Motor 5/5], [alert and oriented times 3] psych [anxious mood and affect] General [moderate acute distress] Results - Labs CBC & BMP: 03/26/17 05:12 03/26/17 05:12 Lab Results: I have reviewed the past 24 hour labs - Diagnostic Findings Procedure: Chest x-ray: image reviewed by me (severe right pleural effusion )
--- NOTE | 2017-03-27 11:54 | Dialysis Note ---
Dialysis Note - Dialysis Note Mr. Mistry seen during hemodialysis. We are ultrafiltering him today for approximately 5 kg. Will dialyze tomorrow and remove more fluid. He has undergone thoracentesis and no pneumothorax is seen on the postthoracentesis for him. He still has a good bit of fluid in his right chest. Again fluid restriction is strongly encouraged but he has had great difficulty limiting himself in the past.
[2017-03-27 12:02] LABS: Lymphocytes,Pleural Fluid 77 %; Monocytes,Pleural Fluid 16 %; Neutrophils,Pleural Fluid 7 %; RBC,Pleural Fluid 284 T/CUMM
[2017-03-27] MEDS: PANTOPRAZOLE 40 MG TABLET PO SCH (12:04)
[2017-03-27] MEDS: PIPERACILLIN/TAZOBACTAM 3,375 MG in SODIUM CHLORIDE 0.9% 100 ML IV SCH ×2 (12:04→21:31)
[2017-03-27] MEDS: INSULIN GLARGINE 100 UNIT/ML SUBCUT SCH (12:04)
[2017-03-27 12:05] LABS: Total Protein,Body Fluid 4.7 G/DL
--- NOTE | 2017-03-27 12:38 | Ultrasound Report ---
US thoracentesis Indication: Severe shortness of breath. Right pleural effusion. End-stage renal failure. ULTRASOUND-GUIDED THORACENTESIS Description: A formal timeout was performed. Maximum sterile barrier technique was used. A right pleural effusion was identified with ultrasound. The right back was prepped and draped in sterile fashion. Under sonographic guidance, a 6 Kiswahili pigtail catheter was advanced into the effusion using trocar technique. A captured sonographic image documents needle position. The needle was removed. Through the catheter, we obtained a total of 1200 cc of straw-colored, clear fluid. The catheter was removed. A bandage was placed at the puncture site. The patient tolerated the procedure well. Chest radiograph is pending. Impression: Ultrasound-guided thoracentesis. PROCEDURE INTERPRETED AT [facility] DEPARTMENT OF RADIOLOGY Final Report Signed by: Pascual Herman M.D.
--- NOTE | 2017-03-27 12:39 | XRay Report ---
XR chest post procedure Indication: Status post right thoracentesis. Post procedure chest radiograph, 2 views: Inspiratory and expiratory views of the chest were obtained. Comparison 0932 hours shows a reduction in the size of the right pleural effusion although remains relatively large. No pneumothorax seen. Left lung and pleural space are clear except for basilar atelectasis. Heart size remains indeterminate. Impression: Reduced size of right pleural effusion without pneumothorax present. Consider repeat thoracentesis in 1 to 2 days, same volume. PROCEDURE INTERPRETED AT [facility] DEPARTMENT OF RADIOLOGY Final Report Signed by: Pascual Herman M.D.
[2017-03-27] MEDS: ALBUTEROL/IPRATROPIUM 3 ML NEB RESP TX SCH ×3 (15:23→23:33)
--- NOTE | 2017-03-27 16:00 | Cardiology Progress Note ---
<Tina Forte E - Last Filed: 03/27/17 15:43> Assessment and Plan - Time spent with patient Time spent with patient: Greater than 30 minutes Time spent discussing smoking cessation with patient: 3 to 10 minutes (1) CKD (chronic kidney disease) stage 5, GFR less than 15 ml/min Status: Chronic Assessment and plan: SEE PLAN OF CARE LISTED BELOW Current Visit: No (2) Diabetes 1.5, managed as type 2 Status: Chronic Assessment and plan: SEE PLAN OF CARE LISTED BELOW Current Visit: No (3) Hypertension Status: Chronic Assessment and plan: SEE PLAN OF CARE LISTED BELOW Current Visit: No Qualifiers: Hypertension type: essential hypertension Qualified Code(s): I10 - Essential (primary) hypertension (4) Mitral regurgitation Status: Chronic Assessment and plan: SEE PLAN OF CARE LISTED BELOW Current Visit: No Qualifiers: Cardiac valve disease etiology: nonrheumatic Qualified Code(s): I34.0 - Nonrheumatic mitral (valve) insufficiency (5) Essential (primary) hypertension Status: Chronic Assessment and plan: SEE PLAN OF CARE LISTED BELOW Current Visit: No (6) Diabetes mellitus Status: Chronic Assessment and plan: SEE PLAN OF CARE LISTED BELOW Current Visit: No Qualifiers: Diabetes mellitus type: type 2 Chronic kidney disease stage: on chronic dialysis (7) Anemia Status: Chronic Assessment and plan: SEE PLAN OF CARE LISTED BELOW Current Visit: No Qualifiers: Anemia type: iron deficiency Iron deficiency anemia type: unspecified iron deficiency Qualified Code(s): D50.9 - Iron deficiency anemia, unspecified (8) Chronic renal failure Status: Acute Current Visit: No (9) Moderate to severe pulmonary hypertension Status: Chronic Current Visit: No (10) Acute on chronic systolic CHF (congestive heart failure) Status: Acute Assessment and plan: SEE PLAN OF CARE LISTED BELOW Current Visit: No (11) End stage renal disease on dialysis Problem details: No acute indication for HD today. Probably 6-7 kg above true dry weight. Status: Chronic Assessment and plan: SEE PLAN OF CARE LISTED BELOW Current Visit: No (12) Medical non-compliance Problem details: fluid restriction Status: Acute Assessment and plan: SEE PLAN OF CARE LISTED BELOW Current Visit: No (13) Type 2 diabetes mellitus Status: Chronic Assessment and plan: SEE PLAN OF CARE LISTED BELOW Current Visit: No (14) Elevated LFTs Status: Acute Assessment and plan: SEE PLAN OF CARE LISTED BELOW Current Visit: No (15) Cocaine abuse Status: Chronic Assessment and plan: SEE PLAN OF CARE LISTED BELOW Current Visit: No (16) Community acquired pneumonia Status: Acute Current Visit: Yes (17) Pleural effusion, right Status: Acute Current Visit: Yes Cardiology - PN: Subj Interval history: TEMPORARY OFFICE ASSISTANT: (NEW) DR. COOPER Mr. Castro, 61BM, with no prior history of a known cardiac condition. Risk factors include: Hypertension, diabetes, dyslipidemia, tobaccoism, noncompliance , and sedentary lifestyle. History of ETOH abuse, history of cocaine abuse. History of chronic renal failure requiring dialysis. Admitted to the ED [facility] March 25, 2017 with complaints of shortness of breath, diagnosed with acute CHF, possible community-acquired pneumonia. Echocardiogram March 23, 2017 reveals: EF 30-35%, grade 1 diastolic dysfunction, moderate MR, PAP 70-75 mmHg. Reports he has never had cardiac catheterization, likely related to his noncompliance. There are no records from [facility] of prior follow-up. MARCH 27, 2017: This morning, patient was noted to be in respiratory distress, breathing about 40 times per minute. Chest x-ray continued to reveal significant right pleural effusion. Patient was moved to the CCU. He has undergone urgent dialysis today. Also, he has undergone thoracentesis today. Sitting up in the bedside chair, although he remains tachypneic he reports he is breathing much easier. Denies chest pain, heaviness or tightness. Seems to be a poor historian however. ASSESSMENT/PLAN: 1. SOB - multifactorial to include acute on chronic CHF, possible CAP, pulmonary hypertension. Continue current plan of care 2. CARDIOMYOPATHY - has never undergone cardiac catheterization therefore difficult to categorize etiology of cardiomyopathy. Continue beta-bijal. Will add Aspirin daily. 3. ACUTE ON CHRONIC CHF - secondary to systolic dysfunction (EF 30-35%) and diastolic dysfunction. NYHA Class IV. Continue with beta-blockers, avoiding ERIC inhibitor at this time. Continue with strict I&O, daily weights, dialysis as needed. 4. HYPERTENSION - usually well controlled. Will adjust medications accordingly during hospital stay 5. PULMONARY HYPERTENSION, SEVERE - PAP 70 and 75 mmHg 6. ESRD ON HD - continue dialysis as needed. 7. ANEMIA IN CKD - following daily. Adding low-dose Aspirin 8. DIABETES - sliding scale 9. PLEURAL EFFUSION, RIGHT - status post thoracentesis. 10. ELEVATED BILIRUBIN - may be related to passive congestion or chronic alcohol abuse 11. HISTORY OF NON-COMPLIANCE - reiterated the importance of compliance. Should the patient be able to demonstrate compliance, including no longer using cocaine (cocaine 3 months ago), he may be a candidate for additional workup such as cardiac catheterization and/or ICD 12. FREQUENT COCAINE/ALCOHOL/TOBACCO USE -greater than 5 minutes was spent today discussing the merits of cocaine cessation, alcohol cessation and tobacco cessation. Exam (Progress Note) - Constitutional Vitals: Period Temp Pulse Resp BP Sys/Figueroa Pulse Ox Last 24 Hr 96.2 F-98.5 F 60-98 16-25 97-183/67-118 93-100 Exam: General: [Gentleman who is older than his stated age. Slightly tachypneic at rest. ] [Pleasant and cooperative. ] [Appears comfortable.] HEENT: [Bilateral arcus, normocephalic, atraumatic. Poor dentition noted mucous membranes moist. No jaundice noted. Conjunctiva moist and clear, sclerae anicteric] Neck: 6 cm JVD to jaw. No thyromegaly or lymphadenopathy noted. No carotid bruit appreciated Cardiac: [Regular rate and rhythm.] [II/ holosystolic murmur heard best at fifth intercostal space to the left. Lungs: [Crackles noted posteriorly in the bases midway at both lung ellis, slightly tachypneic. ] Oxygen in use via nasal cannula Abdomen: Bowel sounds normoactive. Nontender and nondistended. No abdominal bruit or thrill noted. No masses noted. Musculoskeletal: Decreased range of motion is noted. Arthritic changes noted in hands and feet Extremities: No clubbing, cyanosis noted. [3-4+ pitting edema noted bilateral lower extremities. ] Upper extremity pulses 2+. Difficult to assess for pulses due to edema lower extremity pulses 2+. Capillary refill less than 3 seconds. Skin: No unusual lesions or rashes. No skin breakdown appreciated. Neuro: Awake, alert and oriented 3. Moves all extremities well without hemiparesis or paralysis. No essential tremor is appreciated. Result/EKG - Labs CBC & BMP: 03/26/17 05:12 03/26/17 05:12 Lab Results: I have reviewed the past 24 hour labs Labs: Laboratory Results - last 24 hr 03/26/17 03/26/1703/26/17 18:10 18:39 21:22 INR PT Patient/Control Mix POC Glucose 97 264 H Lactate Dehydrogenase Total Protein Albumin Fluid Total Protein Fluid Albumin Fluid LDH Fluid Amylase Fluid Lipase Pleural pH Pleural WBC Pleural RBC Pleural Tot Cell Ct Pleural Neutrophils Pleural Lymphocytes Pleural Monocytes Pleural Diff Comment Pleural Glucose Hepatitis A IgM Ab Negative Hep Bs Antigen Negative Hep B Core IgM Ab Negative Hepatitis C Antibody Negative 03/27/17 03/27/17 03/27/17 08:03 10:01 10:01 INR 1.4 PT Patient/Control Mix 15.2 POC Glucose 126 H Lactate Dehydrogenase 168 Total Protein 8.0 Albumin 3.0 L Fluid Total Protein Fluid Albumin Fluid LDH Fluid Amylase Fluid Lipase Pleural pH Pleural WBC Pleural RBC Pleural Tot Cell Ct Pleural Neutrophils Pleural Lymphocytes Pleural Monocytes Pleural Diff Comment Pleural Glucose Hepatitis A IgM Ab Hep Bs Antigen Hep B Core IgM Ab Hepatitis C Antibody 03/27/17 03/27/17 03/27/17 10:50 10:50 10:50 INR PT Patient/Control Mix POC Glucose Lactate Dehydrogenase Total Protein Albumin Fluid Total Protein 4.7 Fluid Albumin 1.8 Fluid LDH 135 Fluid Amylase 29 Fluid Lipase 49 Pleural pH 8.00 Pleural WBC 59 Pleural RBC [address] 100 Pleural Neutrophils 7 Pleural Lymphocytes 77 Pleural Monocytes 16 Pleural Diff Comment Pleural Glucose 176 Hepatitis A IgM Ab Hep Bs Antigen Hep B Core IgM Ab Hepatitis C Antibody 03/27/17 11:40 INR PT Patient/Control Mix POC Glucose 176 H Lactate Dehydrogenase Total Protein Albumin Fluid Total Protein Fluid Albumin Fluid LDH Fluid Amylase Fluid Lipase Pleural pH Pleural WBC Pleural RBC Pleural Tot Cell Ct Pleural Neutrophils Pleural Lymphocytes Pleural Monocytes Pleural Diff Comment Pleural Glucose Hepatitis A IgM Ab Hep Bs Antigen Hep B Core IgM Ab Hepatitis C Antibody - Diagnostic Findings Procedure: Chest x-ray: report reviewed by me - EKG EKG results: interpreted by nv EKG shows: sinus rhythm (NSVT 8 beat) <Maren Kingsley - Last Filed: 03/27/17 22:21> Cardiology - PN: Subj Interval history: I personally interviewed, examined pt, reviewed the chart, discussed MDM with Practitioner Jann. I agree with above. Exam (Progress Note) - Constitutional Vitals: Period Temp Pulse Resp BP Sys/Figueroa Pulse Ox Last 24 Hr 96.2 F-98.5 F 60-87 16-25 97-183/62-107 94-100 Result/EKG - Labs CBC & BMP: 03/26/17 05:12 03/26/17 05:12 Labs: Laboratory Results - last 24 hr 03/27/17 03/27/17 03/27/17 08:03 10:01 10:01 INR 1.4 PT Patient/Control Mix 15.2 POC Glucose 126 H Lactate Dehydrogenase 168 Total Protein 8.0 Albumin 3.0 L Fluid Total Protein Fluid Albumin Fluid LDH Fluid Amylase Fluid Lipase Pleural pH Pleural WBC Pleural RBC Pleural Tot Cell Ct Pleural Neutrophils Pleural Lymphocytes Pleural Monocytes Pleural Diff Comment Pleural Glucose 03/27/17 03/27/17 03/27/17 10:50 10:50 10:50 INR PT Patient/Control Mix POC Glucose Lactate Dehydrogenase Total Protein Albumin Fluid Total Protein 4.7 Fluid Albumin 1.8 Fluid LDH 135 Fluid Amylase 29 Fluid Lipase 49 Pleural pH 8.00 Pleural WBC 59 Pleural RBC [address] 100 Pleural Neutrophils 7 Pleural Lymphocytes 77 Pleural Monocytes 16 Pleural Diff Comment Pleural Glucose 176 03/27/17 03/27/17 03/27/17 11:40 16:57 20:41 INR PT Patient/Control Mix POC Glucose 176 H 130 H 173 H Lactate Dehydrogenase Total Protein Albumin Fluid Total Protein Fluid Albumin Fluid LDH Fluid Amylase Fluid Lipase Pleural pH Pleural WBC Pleural RBC Pleural Tot Cell Ct Pleural Neutrophils Pleural Lymphocytes Pleural Monocytes Pleural Diff Comment Pleural Glucose
[2017-03-27] MEDS: ASPIRIN EC 81 MG TABLET PO SCH (17:22)
[2017-03-27] MEDS: ACETAMINOPHEN 325 MG TABLET PO PRN (21:56)
[2017-03-28 03:48] LABS: Basophils % 0.2 % (0.0-0.8); Eosinophils % 0.4 % (0.00-10.9); Hematocrit 37.2 VOL% (42.0-52.0); Hemoglobin 12.2 GM/DL (14.0-18.0); Immature Granulocytes % 0.6 %; Immature Granulocytes Absolute 0.03 #; Lymphocytes # 0.5 10*3/uL (1.4-4.0); Lymphocytes % 11.6 % (21.2-54.2); Mean Corpuscular HGB Conc 32.8 GM/DL (32-36); Mean Corpuscular Hemoglobin 31 PG (27-34); Mean Corpuscular Volume 93.2 FL (87-102); Mean Platelet Volume 10.3 FL (9.6-12.0); Monocytes # 0.4 10*3/uL (0.11-0.8); Neutrophils # 3.7 10*3/uL (1.4-7.4); Neutrophils % 79.2 % (38.7-73.9); Platelet Count 123 T/CUMM (130-400); Red Blood Count 3.99 MC/CUMM (3.8-5.5); Red Cell Distribution Width 16.5 % (9.3-17.3); White Blood Count 4.7 T/CUMM (4-12)
[2017-03-28] MEDS: ALBUTEROL/IPRATROPIUM 3 ML NEB RESP TX SCH ×6 (03:55→23:53)
[2017-03-28 04:21] LABS: Calcium 8.5 MG/DL (8.5-10.1); Magnesium 2.4 MG/DL (1.8-2.4); Osmolality,Calculated 289.1 MOS/KG (273-304); Potassium 4.1 MMOL/L (3.5-5.1)
[2017-03-28 04:41] LABS: Albumin 2.8 G/DL (3.4-5.0); Bilirubin,Direct 0.8 MG/DL (0.0-0.20); Bilirubin,Indirect 0.4 MG/DL (0.0-1.0); Bilirubin,Total 1.2 MG/DL (0.2-1.0); Total Protein 7.3 G/DL (6.4-8.3)
[2017-03-28] MEDS: NITROGLYCERIN 2% OINT 1 INCH/GM PACK TOP SCH (05:18)
[2017-03-28] MEDS: INSULIN LISPRO 100 UNIT/ML SUBCUT SCH ×4 (08:18→20:49)
[2017-03-28] MEDS: ASPIRIN EC 81 MG TABLET PO SCH (08:43)
[2017-03-28] MEDS: CARVEDILOL 12.5 MG TABLET PO SCH ×2 (08:43→20:46)
[2017-03-28] MEDS: PANTOPRAZOLE 40 MG TABLET PO SCH (08:43)
[2017-03-28] MEDS: CALCIUM ACETATE 667 MG CAPSULE PO SCH ×3 (08:43→17:24)
[2017-03-28] MEDS: INSULIN GLARGINE 100 UNIT/ML SUBCUT SCH (08:44)
--- NOTE | 2017-03-28 08:45 | Nephrology Progress Note ---
Nephrology - PN: Subj Interval history: Mr. Castro is seen in the CCU. He is breathing fairly comfortably sitting up in a chair. He continues to have is very firm edema throughout his body below his waist. We again encouraged him to limit his fluid intake. He is to undergo dialysis today with removal of 4-5 kg of fluid. We have asked him not to drink anything in between meals but just to drink what comes on his tray. His compliance with his fluid restriction has been nil in the past. Exam (PN)-Nephrology - Vital Signs Vital signs: Period Temp Pulse Resp BP Sys/Figueroa Pulse Ox Last 24 Hr 96.1 F-97.4 F 60-74 16-25 97-183/62-107 94-100 - Lab 03/28/17 03:30 03/28/17 03:30 Most recent lab results ABG pH 7.371 (7.35-7.45) 03/25/17 22:30 ABG pCO2 42.9 MM HG (35-48) 03/25/17 22:30 ABG pO2 60.5 MM HG (80-95) L 03/25/17 22:30 ABG HCO3 24.3 MMOL/L (20-26) 03/25/17 22:30 ABG O2 Saturation 91.1 % (95-100) L 03/25/17 22:30 Calcium 8.5 MG/DL (8.5-10.1) 03/28/17 03:30 Magnesium 2.4 MG/DL (1.8-2.4) 03/28/17 03:30
--- NOTE | 2017-03-28 08:47 | Dialysis Note ---
Dialysis Note - Dialysis Note Mr. Castro is seen at the beginning of his dialysis. Will be removing 4-5 kg as tolerated and dialyzing for approximately 4 hours.
--- NOTE | 2017-03-28 08:56 | Cardiology Progress Note ---
<Tina Forte E - Last Filed: 03/28/17 08:48> Assessment and Plan - Time spent with patient Time spent with patient: Greater than 30 minutes Time spent discussing smoking cessation with patient: 3 to 10 minutes (1) CKD (chronic kidney disease) stage 5, GFR less than 15 ml/min Status: Chronic Assessment and plan: SEE PLAN OF CARE LISTED BELOW Current Visit: No (2) Diabetes 1.5, managed as type 2 Status: Chronic Assessment and plan: SEE PLAN OF CARE LISTED BELOW Current Visit: No (3) Hypertension Status: Chronic Assessment and plan: SEE PLAN OF CARE LISTED BELOW Current Visit: No Qualifiers: Hypertension type: essential hypertension Qualified Code(s): I10 - Essential (primary) hypertension (4) Mitral regurgitation Status: Chronic Assessment and plan: SEE PLAN OF CARE LISTED BELOW Current Visit: No Qualifiers: Cardiac valve disease etiology: nonrheumatic Qualified Code(s): I34.0 - Nonrheumatic mitral (valve) insufficiency (5) Essential (primary) hypertension Status: Chronic Assessment and plan: SEE PLAN OF CARE LISTED BELOW Current Visit: No (6) Diabetes mellitus Status: Chronic Assessment and plan: SEE PLAN OF CARE LISTED BELOW Current Visit: No Qualifiers: Diabetes mellitus type: type 2 Chronic kidney disease stage: on chronic dialysis (7) Anemia Status: Chronic Assessment and plan: SEE PLAN OF CARE LISTED BELOW Current Visit: No Qualifiers: Anemia type: iron deficiency Iron deficiency anemia type: unspecified iron deficiency Qualified Code(s): D50.9 - Iron deficiency anemia, unspecified (8) Chronic renal failure Status: Acute Current Visit: No (9) Moderate to severe pulmonary hypertension Status: Chronic Current Visit: No (10) Acute on chronic systolic CHF (congestive heart failure) Status: Acute Assessment and plan: SEE PLAN OF CARE LISTED BELOW Current Visit: No (11) End stage renal disease on dialysis Problem details: No acute indication for HD today. Probably 6-7 kg above true dry weight. Status: Chronic Assessment and plan: SEE PLAN OF CARE LISTED BELOW Current Visit: No (12) Medical non-compliance Problem details: fluid restriction Status: Acute Assessment and plan: SEE PLAN OF CARE LISTED BELOW Current Visit: No (13) Type 2 diabetes mellitus Status: Chronic Assessment and plan: SEE PLAN OF CARE LISTED BELOW Current Visit: No (14) Elevated LFTs Status: Acute Assessment and plan: SEE PLAN OF CARE LISTED BELOW Current Visit: No (15) Cocaine abuse Status: Chronic Assessment and plan: SEE PLAN OF CARE LISTED BELOW Current Visit: No (16) Community acquired pneumonia Status: Acute Assessment and plan: SEE PLAN OF CARE LISTED BELOW Current Visit: Yes (17) Pleural effusion, right Status: Acute Assessment and plan: SEE PLAN OF CARE LISTED BELOW Current Visit: Yes Cardiology - PN: Subj Interval history: [employer]: (NEW) DR. COOPER Mr. Castro, 61BM, with no prior history of a known cardiac condition. Risk factors include: Hypertension, diabetes, dyslipidemia, tobaccoism, noncompliance , and sedentary lifestyle. History of ETOH abuse, history of cocaine abuse. History of chronic renal failure requiring dialysis. Admitted to the ED [facility] March 25, 2017 with complaints of shortness of breath, diagnosed with acute CHF, possible community-acquired pneumonia. Echocardiogram March 23, 2017 reveals: EF 30-35%, grade 1 diastolic dysfunction, moderate MR, PAP 70-75 mmHg. Reports he has never had cardiac catheterization, likely related to his noncompliance. There are no records from [facility] of prior follow-up. MARCH 27, 2017: This morning, patient was noted to be in respiratory distress, breathing about 40 times per minute. Chest x-ray continued to reveal significant right pleural effusion. Patient was moved to the CCU. He has undergone urgent dialysis today. Also, he has undergone thoracentesis today. Sitting up in the bedside chair, although he remains tachypneic, he reports he is breathing much easier. Denies chest pain, heaviness or tightness. Seems to be a poor historian however. MARCH 28, 2017: Sitting in bedside chair this morning, patient states he is breathing much better though he remains slightly tachypneic with his speech. Denies chest pain, heaviness or tightness. He states he can normally perform his activities without symptoms of chest pain, heaviness or tightness. Again, patient is a poor historian and I suspect that he has limited exercise tolerance. Patient reports he was doing relatively well until 3 weeks ago when he began to notice his lower extremities swelling. He then became more short of breath and this is simply progressed. He is scheduled for dialysis today hoping to remove 4-5 kg as tolerated. Patient acknowledges that he does use cocaine frequently and today reports he used it several weeks ago. At this point, continue to treat for acute on chronic CHF, possible CAP, pulmonary hypertension. No chest x-ray this morning and I will reorder that. Limited air movement in the right lung field. Will further discuss with Dr. Kingsley and await additional recommendations. ASSESSMENT/PLAN: 1. SOB - multifactorial to include acute on chronic CHF, possible CAP, pulmonary hypertension. Continue current plan of care 2. CARDIOMYOPATHY - has never undergone cardiac catheterization therefore difficult to categorize etiology of cardiomyopathy. Continue beta-bijal. Will add Aspirin daily. 3. ACUTE ON CHRONIC CHF - secondary to systolic dysfunction (EF 30-35%) and diastolic dysfunction. NYHA Class IV. Continue with beta-blockers, avoiding ERIC inhibitor at this time. Continue with strict I&O, daily weights, dialysis as needed. 4. HYPERTENSION - well controlled. Will adjust medications accordingly during hospital stay 5. PULMONARY HYPERTENSION, SEVERE - PAP 70 - 75 mmHg 6. ESRD ON HD - continue dialysis as needed. 7. ANEMIA IN CKD - following daily. Adding low-dose Aspirin. 8. DIABETES - sliding scale 9. PLEURAL EFFUSION, RIGHT - status post thoracentesis. 10. ELEVATED BILIRUBIN - may be related to passive congestion or chronic alcohol abuse. 1.2 this morning. Avoiding lipid-lowering agents or other hepatotoxic medications 11. HISTORY OF NON-COMPLIANCE - reiterated the importance of compliance. Should the patient be able to demonstrate compliance, including no longer using cocaine routinely, he may be a candidate for additional workup such as cardiac catheterization and/or ICD 12. FREQUENT COCAINE/ALCOHOL/TOBACCO USE - greater than 5 minutes was spent today discussing the merits of cocaine cessation, alcohol cessation and tobacco cessation. Exam (Progress Note) - Constitutional Vitals: Period Temp Pulse Resp BP Sys/Figueroa Pulse Ox Last 24 Hr 96.1 F-97.4 F 60-74 16-25 97-183/62-107 94-100 Exam: General: [Gentleman who is older than his stated age. Slightly tachypneic at rest. ] [Pleasant and cooperative. ] [Appears comfortable.] HEENT: [Bilateral arcus, normocephalic, atraumatic. Poor dentition noted mucous membranes moist. No jaundice noted. Conjunctiva moist and clear, sclerae anicteric] Neck: 6 cm JVD to jaw. No thyromegaly or lymphadenopathy noted. No carotid bruit appreciated Cardiac: [Regular rate and rhythm.] [II/ holosystolic murmur heard best at fifth intercostal space to the left. Lungs: [Right lung field with diminished sounds, crackles noted posteriorly in the left lower lung ellis. Tachypneic with speech. ] Oxygen in use via nasal cannula Abdomen: Bowel sounds normoactive. Nontender. No abdominal bruit or thrill noted. No masses noted. Musculoskeletal: Decreased range of motion is noted. Arthritic changes noted in hands and feet Extremities: No clubbing, cyanosis noted. [3-4+ pitting edema noted bilateral lower extremities extending to hips. ] Upper extremity pulses 2+. Difficult to assess for pulses due to edema lower extremity pulses 2+. Capillary refill less than 3 seconds. Skin: No unusual lesions or rashes. No skin breakdown appreciated. Neuro: Awake, alert and oriented 3. Moves all extremities well without hemiparesis or paralysis. No essential tremor is appreciated. Result/EKG - Labs CBC & BMP: 03/28/17 03:30 03/28/17 03:30 Lab Results: I have reviewed the past 24 hour labs Labs: Laboratory Results - last 24 hr 03/27/17 03/27/17 03/27/17 10:01 10:01 10:50 WBC RBC Hgb Hct MCV MCH MCHC RDW Plt Count MPV Neut % (Auto) Lymph % (Auto) Grand % (Auto) Eos % (Auto) Baso % (Auto) Neut # (Auto) Lymph # (Auto) Grand # (Auto) Eos # (Auto) Baso # (Auto) Immature Gran % Nucleated RBC % Immature Gran # Nucleated RBCs # Immature Plt Fraction INR 1.4 PT Patient/Control Mix 15.2 Sodium Potassium Chloride Carbon Dioxide Anion Gap BUN Creatinine GFR Calculation BUN/Creatinine Ratio Glucose POC Glucose Calculated Osmolality Calcium Magnesium Total Bilirubin Direct Bilirubin Indirect Bilirubin AST ALT Alkaline Phosphatase Lactate Dehydrogenase 168 Total Protein 8.0 Albumin 3.0 L Fluid Total Protein 4.7 Fluid Albumin 1.8 Fluid LDH 135 Fluid Amylase 29 Fluid Lipase 49 Pleural pH Pleural WBC Pleural RBC Pleural Tot Cell Ct Pleural Neutrophils Pleural Lymphocytes Pleural Monocytes Pleural Diff Comment Pleural Glucose 176 03/27/17 03/27/17 03/27/17 10:50 10:50 11:40 WBC RBC Hgb Hct MCV MCH MCHC RDW Plt Count MPV Neut % (Auto) Lymph % (Auto) Grand % (Auto) Eos % (Auto) Baso % (Auto) Neut # (Auto) Lymph # (Auto) Grand # (Auto) Eos # (Auto) Baso # (Auto) Immature Gran % Nucleated RBC % Immature Gran # Nucleated RBCs # Immature Plt Fraction INR PT Patient/Control Mix Sodium Potassium Chloride Carbon Dioxide Anion Gap BUN Creatinine GFR Calculation BUN/Creatinine Ratio Glucose POC Glucose 176 H Calculated Osmolality Calcium Magnesium Total Bilirubin Direct Bilirubin Indirect Bilirubin AST ALT Alkaline Phosphatase Lactate Dehydrogenase Total Protein Albumin Fluid Total Protein Fluid Albumin Fluid LDH Fluid Amylase Fluid Lipase Pleural pH 8.00 Pleural WBC 59 Pleural RBC [address] 100 Pleural Neutrophils 7 Pleural Lymphocytes 77 Pleural Monocytes 16 Pleural Diff Comment Pleural Glucose 03/27/17 03/27/17 03/28/17 16:57 20:41 03:30 WBC 4.7 RBC 3.99 Hgb 12.2 L Hct 37.2 L MCV 93.2 MCH 31 MCHC 32.8 RDW 16.5 Plt Count 123 L MPV 10.3 Neut % (Auto) 79.2 H Lymph % (Auto) 11.6 L Grand % (Auto) 8.0 Eos % (Auto) 0.4 Baso % (Auto) 0.2 Neut # (Auto) 3.7 Lymph # (Auto) 0.5 L Grand # (Auto) 0.4 Eos # (Auto) 0.0 Baso # (Auto) 0.0 Immature Gran % 0.6 Nucleated RBC % 0.0 Immature Gran # 0.03 Nucleated RBCs # 0.00 Immature Plt Fraction 0.0 INR PT Patient/Control Mix Sodium Potassium Chloride Carbon Dioxide Anion Gap BUN Creatinine GFR Calculation BUN/Creatinine Ratio Glucose POC Glucose 130 H 173 H Calculated Osmolality Calcium Magnesium Total Bilirubin Direct Bilirubin Indirect Bilirubin AST ALT Alkaline Phosphatase Lactate Dehydrogenase Total Protein Albumin Fluid Total Protein Fluid Albumin Fluid LDH Fluid Amylase Fluid Lipase Pleural pH Pleural WBC Pleural RBC Pleural Tot Cell Ct Pleural Neutrophils Pleural Lymphocytes Pleural Monocytes Pleural Diff Comment Pleural Glucose 03/28/17 03/28/17 03/28/17 03:30 03:30 08:16 WBC RBC Hgb Hct MCV MCH MCHC RDW Plt Count MPV Neut % (Auto) Lymph % (Auto) Grand % (Auto) Eos % (Auto) Baso % (Auto) Neut # (Auto) Lymph # (Auto) Grand # (Auto) Eos # (Auto) Baso # (Auto) Immature Gran % Nucleated RBC % Immature Gran # Nucleated RBCs # Immature Plt Fraction INR PT Patient/Control Mix Sodium 135 L Potassium 4.1 Chloride 97 L Carbon Dioxide 28 Anion Gap 14.1 BUN 68 H Creatinine 8.10 H GFR Calculation 10 BUN/Creatinine Ratio 8.00 Glucose 100 POC Glucose 85 Calculated Osmolality 289.1 Calcium 8.5 Magnesium 2.4 Total Bilirubin 1.20 H Direct Bilirubin 0.80 H Indirect Bilirubin 0.4 AST 27 ALT 19 Alkaline Phosphatase 228 H Lactate Dehydrogenase Total Protein 7.3 Albumin 2.8 L Fluid Total Protein Fluid Albumin Fluid LDH Fluid Amylase Fluid Lipase Pleural pH Pleural WBC Pleural RBC Pleural Tot Cell Ct Pleural Neutrophils Pleural Lymphocytes Pleural Monocytes Pleural Diff Comment Pleural Glucose - Diagnostic Findings Procedure: Chest x-ray: pending - EKG EKG results: interpreted by me EKG shows: sinus rhythm <Maren Kingsley - Last Filed: 03/28/17 19:55> Cardiology - PN: Subj Interval history: I have personally interviewed and evaluated the patient, reviewed the chart and discussed medical decision-making with Practitioner Jann. I have read this note and agree with her documentation here in. Exam (Progress Note) - Constitutional Vitals: Period Temp Pulse Resp BP Sys/Figueroa Pulse Ox Last 24 Hr 96.1 F-98.0 F 70-88 14-26 96-159/64-94 94-100 Result/EKG - Labs CBC & BMP: 03/28/17 03:30 03/28/17 03:30 Labs: Laboratory Results - last 24 hr 03/27/17 03/28/17 03/28/17 20:41 03:30 03:30 WBC 4.7 RBC 3.99 Hgb 12.2 L Hct 37.2 L MCV 93.2 MCH 31 MCHC 32.8 RDW 16.5 Plt Count 123 L MPV 10.3 Neut % (Auto) 79.2 H Lymph % (Auto) 11.6 L Grand % (Auto) 8.0 Eos % (Auto) 0.4 Baso % (Auto) 0.2 Neut # (Auto) 3.7 Lymph # (Auto) 0.5 L Grand # (Auto) 0.4 Eos # (Auto) 0.0 Baso # (Auto) 0.0 Immature Gran % 0.6 Nucleated RBC % 0.0 Immature Gran # 0.03 Nucleated RBCs # 0.00 Immature Plt Fraction 0.0 Sodium 135 L Potassium 4.1 Chloride 97 L Carbon Dioxide 28 Anion Gap 14.1 BUN 68 H Creatinine 8.10 H GFR Calculation 10 BUN/Creatinine Ratio 8.00 Glucose 100 POC Glucose 173 H Calculated Osmolality 289.1 Calcium 8.5 Magnesium 2.4 Total Bilirubin Direct Bilirubin Indirect Bilirubin AST ALT Alkaline Phosphatase Total Protein Albumin 03/28/17 03/28/17 03/28/17 03:30 08:16 11:45 WBC RBC Hgb Hct MCV MCH MCHC RDW Plt Count MPV Neut % (Auto) Lymph % (Auto) Grand % (Auto) Eos % (Auto) Baso % (Auto) Neut # (Auto) Lymph # (Auto) Grand # (Auto) Eos # (Auto) Baso # (Auto) Immature Gran % Nucleated RBC % Immature Gran # Nucleated RBCs # Immature Plt Fraction Sodium Potassium Chloride Carbon Dioxide Anion Gap BUN Creatinine GFR Calculation BUN/Creatinine Ratio Glucose POC Glucose 85 119 H Calculated Osmolality Calcium Magnesium Total Bilirubin 1.20 H Direct Bilirubin 0.80 H Indirect Bilirubin 0.4 AST 27 ALT 19 Alkaline Phosphatase 228 H Total Protein 7.3 Albumin 2.8 L 03/28/17 03/28/17 17:03 19:52 WBC RBC Hgb Hct MCV MCH MCHC RDW Plt Count MPV Neut % (Auto) Lymph % (Auto) Grand % (Auto) Eos % (Auto) Baso % (Auto) Neut # (Auto) Lymph # (Auto) Grand # (Auto) Eos # (Auto) Baso # (Auto) Immature Gran % Nucleated RBC % Immature Gran # Nucleated RBCs # Immature Plt Fraction Sodium Potassium Chloride Carbon Dioxide Anion Gap BUN Creatinine GFR Calculation BUN/Creatinine Ratio Glucose POC Glucose 94 146 H Calculated Osmolality Calcium Magnesium Total Bilirubin Direct Bilirubin Indirect Bilirubin AST ALT Alkaline Phosphatase Total Protein Albumin
[2017-03-28] MEDS: PIPERACILLIN/TAZOBACTAM 3,375 MG in SODIUM CHLORIDE 0.9% 100 ML IV SCH ×3 (09:11→21:28)
--- NOTE | 2017-03-28 09:31 | Pulmonology Consult Note ---
Assessment and Plan (1) Cardiomyopathy, idiopathic Status: Chronic Assessment and plan: Ejection fraction 35%. Also has secondary pulmonary hypertension with peak pulmonary artery pressure of 70. Would be best treated by offloading with dialysis. Apparently is noncompliant with diet and fluid intake Current Visit: No (2) ESRD (end stage renal disease) on dialysis Status: Chronic Assessment and plan: Getting dialysis at present. In my view needs about 30-40 pounds taken off. This of course would take a number of weeks Current Visit: Yes (3) COPD (chronic obstructive pulmonary disease) Status: Acute Assessment and plan: Treat with bronchodilators. However I think most of the wheezing is from the fluid overload. Current Visit: Yes (4) Volume overload Status: Acute Assessment and plan: Has anasarca. Current Visit: Yes (5) Pleural effusion, right Status: Acute Assessment and plan: Agree with an indwelling right pleural catheter. This will help with his dyspnea while we are getting the fluid off with dialysis. Current Visit: Yes History of Present Illness Chief complaint: Shortness of breath History of present illness: Mr. Castro is a 61 year old male has been short of breath for several weeks. He came the hospital with a huge right pleural effusion. This was drained by radiology. The fluid showed a total protein of 4.7 which would indicate an exudate. Everything else about it sounds like a transudate. Sometimes an old transudate can have slightly elevated proteins but 4.7 is a little high for that. He is to have a second right pleural drainage today and I agree with leaving the pigtail catheter in this time as he might require a pleurodesis at some point and we need to keep the fluid out until it can be offloaded with dialysis. He has anasarca and probably 30 or 40 pounds of excess fluid overall. He has a history of noncompliance and is a smoker. Dialysis patient diabetic hypertensive. Uses cocaine. Home Medications Medication Instructions Recorded Confirmed Type Carvedilol [Coreg] 25 mg PO BID #60 tablet 09/18/15 03/25/17 Rx Calcium Acetate 667 mg PO TID W/MEALS 07/25/16 03/25/17 History Insulin Regular, Human [NovoLIN R] 2 unit SUBCUT BID 10/24/16 03/25/17 History Allergies Allergy/AdvReac Type Severity Reaction Status Date / Time No Known Allergies Allergy Verified 03/25/17 19:25 12 point system: reviewed and no additional remarkable complaints except as stated - Cardiovascular Cardiovascular: Present: dyspnea, dyspnea on exertion, edema, orthopnea - Respiratory Respiratory: Present: cough, dyspnea, dyspnea on exertion, wheezing Exam (Pulmonay) H&P - Constitutional Vitals: Period Temp Pulse Resp BP Sys/Figueroa Pulse Ox Last 24 Hr 96.1 F-97.4 F 60-74 16-26 97-183/62-107 94-100 Exam: Patient's alert oriented vital signs are normal. Pupils react to light. Throat is clear. Neck supple no bruits. He does have jugular venous distention. Chest reveals some wheezing on the right side breath sounds at the right base. Dullness lower half of right chest. Heart normal rate rhythm no murmurs. Abdomen with good bit of abdominal wall pitting edema. Extremities 4 + pitting edema. Anasarca. Medical,Surgical,& Family Hx - Medical History Cardio: History of: CHF, Hypertension Psychological: History of: Psychiatric/Substance Abuse Tx Comment Only: Behavior Problems (PT VERY MAD WHEN HE LEFT PT STATED HE DID NOT TAKE ANY MEDS AT ALL) Neurology: No history of: Seizures HEENT: History of: Eye Problem (GLASSES) Endocrine: History of: Diabetes Mellitus (IDDM) (SLIDING SCALE INSULIN), Dyslipidemia No history of: Diabetes Mellitus (NIDDM) Renal: History of: Dialysis (MWF DIALYSIS), Renal Failure (ESRD- LEFT LOWER ARM AVF), Renal Problems (Recent Hematuria-Cyst Negative done 09/2016) Hematology: History of: Anemia - Surgical History Neurologic Surgeries: Surgical HX of: Neurologic Surgery Abdominal Surgeries: Patient denies: Appendectomy, Cholecystectomy Reproductive Surgeries: Surgical HX of;: Cystoscopy (09/2016) - Family History Family History: Reports;: Family Cancer (sister), Family Diabetes, Family Hypertension Denies;: Family Heart Disease, Family Psychiatric Problems, Family Stroke - Social History Smoking Status: Current every day smoker Frequency of Alcohol Use: None Type of Drug Use: None Results - Labs CBC & BMP: 03/28/17 03:30 03/28/17 03:30 Lab Results: I have reviewed the past 24 hour labs - Diagnostic Findings Procedure: Chest x-ray: image reviewed by me (Recurrent large right pleural effusion)
--- NOTE | 2017-03-28 09:52 | Hospitalist Progress Note ---
Assessment and Plan (1) Acute respiratory failure Status: Acute Assessment and plan: Consult with Dr. Gay from pulmonary. He agrees the patient needs a pleural catheter to drain his right lung. Continue antibiotics for now even though his white count is normal. His fluid looks both exudative and transudative. Repeat thoracentesis with pleural drain placed hopefully today. Current Visit: Yes (2) Acute on chronic systolic CHF (congestive heart failure) Status: Acute Assessment and plan: Continue dialysis, will try to get off 4-5 liters again Current Visit: No (3) Cardiomyopathy, idiopathic Status: Chronic Assessment and plan: echo ef 30% with mod MVR and severe TVR with pap 70 and diastolic dysfunction Current Visit: No (4) Essential (primary) hypertension Status: Chronic Assessment and plan: cont coreg 12.5 mg po bid Current Visit: No (5) Moderate to severe pulmonary hypertension Status: Chronic Assessment and plan: severe Current Visit: No (6) End stage renal disease on dialysis Problem details: No acute indication for HD today. Probably 6-7 kg above true dry weight. Status: Chronic Assessment and plan: dialysis again today Current Visit: No (7) Anemia in chronic kidney disease (CKD) Status: Deleted Assessment and plan: hgb stable will monitor, started protonix Current Visit: No (8) Type 2 diabetes mellitus Status: Chronic Assessment and plan: cont lantus 5 units daily Current Visit: No (9) Pleural effusion, right Status: Acute Assessment and plan: large right pleural effusion remains, pulmonary agrees with drain. Current Visit: Yes Hospitalist: Subjective Interval history: Past Dr. Gay to see patient today due to this right pleural effusion. Patient remains diminished on that side still has more to be withdrawn. We will asked them to put a catheter in in pulmonary agrees. Patient may even need pleurodesis in the near future. Patient had over 4 L removed by dialysis yesterday. He will remain down here for 1 more day. Exam - Constitutional Vitals: Period Temp Pulse Resp BP Sys/Figueroa Pulse Ox Last 24 Hr 96.1 F-97.4 F 60-74 16-26 97-183/62-107 94-100 Exam: Heart Rate-[RRR] Lungs-[extremely diminished on the right] GI-[+bs soft, NT] Ext-[2+ pitting edema up his thighs] Neuro [Motor 5/5], [alert and oriented times 3] psych [pleasant mood and affect] General [no acute distress] Results - Labs CBC & BMP: 03/28/17 03:30 03/28/17 03:30 Lab Results: I have reviewed the past 24 hour labs - Diagnostic Findings Procedure: Ultrasound: report reviewed by me (Echocardiogram shows an EF of 30% with grade 4 diastolic dysfunction and severe tricuspid regurg with pulmonary hypertension the PA P of 75)
--- NOTE | 2017-03-28 15:52 | XRay Report ---
XR chest post procedure Indication: Status post chest tube placement. Comparison: Chest x-ray 03/27/2017. Technique: Portable AP chest. Findings: Percutaneous tube placement on the right is demonstrated with some interval decrease in size of right-sided pleural effusion. Opacification in the lung may reflect atelectasis and/or infection. Chest is otherwise unchanged. Impression: 1. Interval placement of right-sided chest tube with some decrease in pleural fluid and parenchymal opacities as detailed. 03/28/2017 3:49 PM PROCEDURE INTERPRETED AT [facility] DEPARTMENT OF RADIOLOGY Final Report Signed by: Dr. Ray Mckay
--- NOTE | 2017-03-28 16:09 | Ultrasound Report ---
US thoracentesis w tube place Indication: Right pleural effusion. RIGHT PLEURAL DRAIN CATHETER PLACEMENT Description: Formal timeout was performed. Right back was prepped and draped in sterile fashion. Ultrasound demonstrates a large right pleural effusion. Under sonographic guidance, a vascular needle was advanced into the pleural fluid. Captured sonographic image documents needle position. Needle was exchanged over a wire for a 10 Malian pigtail drain catheter. The pigtail was formed in the pleural space, anchored with a StatLock device, and connected to Pleur-evac. For the time being, draining via water seal. Impression: Placement of right 10 Malian pleural drain catheter as described. Waterseal drainage overnight. Consider suction tomorrow. PROCEDURE INTERPRETED AT [facility] DEPARTMENT OF RADIOLOGY Final Report Signed by: Pascual Herman M.D.
[2017-03-28] MEDS: ACETAMINOPHEN 325 MG TABLET PO PRN (20:39)
[2017-03-29] MEDS: ALBUTEROL/IPRATROPIUM 3 ML NEB RESP TX SCH ×6 (03:21→23:30)
[2017-03-29 04:14] LABS: Basophils % 0.2 % (0.0-0.8); Eosinophils % 0.4 % (0.00-10.9); Hematocrit 35.4 VOL% (42.0-52.0); Hemoglobin 11.8 GM/DL (14.0-18.0); Immature Granulocytes % 0.4 %; Immature Granulocytes Absolute 0.02 #; Lymphocytes # 0.5 10*3/uL (1.4-4.0); Lymphocytes % 10.4 % (21.2-54.2); Mean Corpuscular HGB Conc 33.3 GM/DL (32-36); Mean Corpuscular Hemoglobin 31 PG (27-34); Mean Corpuscular Volume 91.7 FL (87-102); Monocytes # 0.4 10*3/uL (0.11-0.8); Monocytes % 7.7 % (1.7-12.7); Neutrophils # 3.9 10*3/uL (1.4-7.4); Neutrophils % 80.9 % (38.7-73.9); Platelet Count 133 T/CUMM (130-400); Red Blood Count 3.86 MC/CUMM (3.8-5.5); Red Cell Distribution Width 16.4 % (9.3-17.3); White Blood Count 4.8 T/CUMM (4-12)
[2017-03-29 04:45] LABS: Calcium 7.8 MG/DL (8.5-10.1); Magnesium 2.2 MG/DL (1.8-2.4); Osmolality,Calculated 282.2 MOS/KG (273-304)
[2017-03-29] MEDS: INSULIN LISPRO 100 UNIT/ML SUBCUT SCH ×4 (07:15→21:35)
[2017-03-29] MEDS: INSULIN GLARGINE 100 UNIT/ML SUBCUT SCH (08:34)
[2017-03-29] MEDS: CARVEDILOL 12.5 MG TABLET PO SCH (08:35)
[2017-03-29] MEDS: CALCIUM ACETATE 667 MG CAPSULE PO SCH ×3 (08:35→16:44)
[2017-03-29] MEDS: ASPIRIN EC 81 MG TABLET PO SCH (08:35)
[2017-03-29] MEDS: PANTOPRAZOLE 40 MG TABLET PO SCH (08:35)
--- NOTE | 2017-03-29 08:45 | Nephrology Progress Note ---
Nephrology - PN: Subj Interval history: Mr. Castro is seen in follow-up of his end-stage renal disease. In the CCU we been able to reasonably restrict fluids though he asked for something to drink from each entrant into the room. He had a pigtail catheter placed in the right pleural space yesterday to drain 3 L and he is breathing much better. He still has generous peripheral edema and will ultrafilter today. We will attempt to remove 45 kg as tolerated. We have again counseled him that he will have to restrict his fluids in order to keep himself nearly edema free and keep this fluid out of his pleural space. Exam (PN)-Nephrology - Vital Signs Vital signs: Period Temp Pulse Resp BP Sys/Figueroa Pulse Ox Last 24 Hr 96.8 F-98.0 F 72-88 14-25 88-127/51-94 94-100 - Lab 03/29/17 03:46 03/29/17 03:46 Most recent lab results ABG pH 7.371 (7.35-7.45) 03/25/17 22:30 ABG pCO2 42.9 MM HG (35-48) 03/25/17 22:30 ABG pO2 60.5 MM HG (80-95) L 03/25/17 22:30 ABG HCO3 24.3 MMOL/L (20-26) 03/25/17 22:30 ABG O2 Saturation 91.1 % (95-100) L 03/25/17 22:30 Calcium 7.8 MG/DL (8.5-10.1) L 03/29/17 03:46 Magnesium 2.2 MG/DL (1.8-2.4) 03/29/17 03:46
--- NOTE | 2017-03-29 09:01 | Pulmonology Progress Note ---
Pulmonary - PN: Subj Interval history: This 61-year-old black male is on dialysis and has anasarca. He has had recurring massive right pleural effusions. Now has a pleural catheter in the right side that is put out 4 L in the last 24 hours. The earlier pleural fluid was actually barely exudative. We will probably want to do a pleurodesis in a day or 2 on him. Exam (Progress Note) - Constitutional Vitals: Period Temp Pulse Resp BP Sys/Figueroa Pulse Ox Last 24 Hr 96.8 F-98.0 F 72-88 14-25 88-127/51-94 94-100 Exam: Patient's alert oriented vital signs normal. Pupils react to light. Throat is clear. Neck supple no bruits. Chest reveals decreased breath sounds on the right side left lung sounds clear. Heart normal rate and rhythm no murmurs. abdomen soft nontender no masses. Extremities show 4+ edema. Results - Labs CBC & BMP: 03/29/17 03:46 03/29/17 03:46 Lab Results: I have reviewed the past 24 hour labs - Diagnostic Findings Procedure: Chest x-ray: image reviewed by me, pending (This morning's x-ray shows the right lung to be fully expanded and the fluid drained. Pleural catheter is in place.) Assessment and Plan (1) Cardiomyopathy, idiopathic Status: Chronic Assessment and plan: Ejection fraction 35%. Also has secondary pulmonary hypertension with peak pulmonary artery pressure of 70. Would be best treated by offloading with dialysis. Apparently is noncompliant with diet and fluid intake. 03/29/17 congestive heart failure is much improved after yesterday's dialysis. Current Visit: No (2) ESRD (end stage renal disease) on dialysis Status: Chronic Assessment and plan: Getting dialysis at present. In my view needs about 30-40 pounds taken off. This of course would take a number of weeks 03/29/17 dialysis works when he has them. Current Visit: Yes (3) COPD (chronic obstructive pulmonary disease) Status: Acute Assessment and plan: Treat with bronchodilators. However I think most of the wheezing is from the fluid overload. 03/29/17 no active bronchospasm. Current Visit: Yes (4) Volume overload Status: Acute Assessment and plan: Has anasarca. 03/29/17 weight down 9 kg from admission. Still has peripheral edema. Current Visit: Yes (5) Pleural effusion, right Status: Acute Assessment and plan: Agree with an indwelling right pleural catheter. This will help with his dyspnea while we are getting the fluid off with dialysis. 03/29/17 right lung fully expanded with pleural catheter in place. Will watch drainage and plan pleurodesis when it can be done. Cytology is still pending from the pleural fluid. Technically the total protein level was such that this is an exudate. I suspect that it is just an old transudate. Current Visit: Yes
[2017-03-29] MEDS: PIPERACILLIN/TAZOBACTAM 3,375 MG in SODIUM CHLORIDE 0.9% 100 ML IV SCH ×2 (09:16→21:38)
--- NOTE | 2017-03-29 09:16 | Pathology Report from [facility] ---
[facility] [place] ACCESSION # : [id number] PATIENT NAME : Jeff Castro ORDERING DR : RADHA SARGENT MD CLINICAL HX: Pleural Effusion POST-OP DX: Same SPECIMEN INFO: Fluid,Pleural,Right - 1200 mls straw-colored, hazy with clot CLASS: II CLASS COMMENTS: Proteinaceous material, reactive mesothelials.CELL BLOCK: Same CLASS LEGEND: CLASS 0 Material inadequate for diagnosis because of (see comment) CLASS I Absence of atypical or abnormal cells CLASS II Atypical Cytology but no evidence of malignancy CLASS III Cytology suggestive of but not conclusive for malignancy CLASS IV Cytology strongly suggestive of malignancy CLASS V Cytology conclusive for malignancy COLLECTED DATE: 03/27/2017 [facility] [place] REPORT DATE: 03/28/2017 ELECTRONICALLY SIGNED BY: Wanda Reddy III, M.D. 03/28/2017 - 9:09:11 MARCELO
--- NOTE | 2017-03-29 09:32 | XRay Report ---
XR chest 1V portable Indication: Right pleural effusion Comparison: Chest x-ray dated March 28, 2017 Technique: Single frontal view of the chest. Findings: Continued cardiomegaly. Chest tube projects over the right hemidiaphragm. Significant interval decrease in right-sided pleural fluid with minimal residual remaining. Suspect small left pleural fluid. Visualized osseous and surrounding soft tissue structures appear grossly unchanged. IMPRESSION: As above. PROCEDURE INTERPRETED AT [facility] DEPARTMENT OF RADIOLOGY Final Report Signed by: Dr Joey Hilton
--- NOTE | 2017-03-29 09:41 | Cardiology Progress Note ---
<Tina Forte E - Last Filed: 03/29/17 09:44> Assessment and Plan - Time spent with patient Time spent with patient: Greater than 30 minutes Time spent discussing smoking cessation with patient: 3 to 10 minutes (1) CKD (chronic kidney disease) stage 5, GFR less than 15 ml/min Status: Chronic Assessment and plan: SEE PLAN OF CARE LISTED BELOW Current Visit: No (2) Diabetes 1.5, managed as type 2 Status: Chronic Assessment and plan: SEE PLAN OF CARE LISTED BELOW Current Visit: No (3) Hypertension Status: Chronic Assessment and plan: SEE PLAN OF CARE LISTED BELOW Current Visit: No Qualifiers: Hypertension type: essential hypertension Qualified Code(s): I10 - Essential (primary) hypertension (4) Mitral regurgitation Status: Chronic Assessment and plan: SEE PLAN OF CARE LISTED BELOW Current Visit: No Qualifiers: Cardiac valve disease etiology: nonrheumatic Qualified Code(s): I34.0 - Nonrheumatic mitral (valve) insufficiency (5) Essential (primary) hypertension Status: Chronic Assessment and plan: SEE PLAN OF CARE LISTED BELOW Current Visit: No (6) Diabetes mellitus Status: Chronic Assessment and plan: SEE PLAN OF CARE LISTED BELOW Current Visit: No Qualifiers: Diabetes mellitus type: type 2 Chronic kidney disease stage: on chronic dialysis (7) Anemia Status: Chronic Assessment and plan: SEE PLAN OF CARE LISTED BELOW Current Visit: No Qualifiers: Anemia type: iron deficiency Iron deficiency anemia type: unspecified iron deficiency Qualified Code(s): D50.9 - Iron deficiency anemia, unspecified (8) Chronic renal failure Status: Acute Current Visit: No (9) Moderate to severe pulmonary hypertension Status: Chronic Current Visit: No (10) Acute on chronic systolic CHF (congestive heart failure) Status: Acute Assessment and plan: SEE PLAN OF CARE LISTED BELOW Current Visit: No (11) End stage renal disease on dialysis Problem details: No acute indication for HD today. Probably 6-7 kg above true dry weight. Status: Chronic Assessment and plan: SEE PLAN OF CARE LISTED BELOW Current Visit: No (12) Medical non-compliance Problem details: fluid restriction Status: Acute Assessment and plan: SEE PLAN OF CARE LISTED BELOW Current Visit: No (13) Type 2 diabetes mellitus Status: Chronic Assessment and plan: SEE PLAN OF CARE LISTED BELOW Current Visit: No (14) Elevated LFTs Status: Acute Assessment and plan: SEE PLAN OF CARE LISTED BELOW Current Visit: No (15) Cocaine abuse Status: Chronic Assessment and plan: SEE PLAN OF CARE LISTED BELOW Current Visit: No (16) Community acquired pneumonia Status: Acute Assessment and plan: SEE PLAN OF CARE LISTED BELOW Current Visit: Yes (17) Pleural effusion, right Status: Acute Assessment and plan: SEE PLAN OF CARE LISTED BELOW Current Visit: Yes Cardiology - PN: Subj Interval history: 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 Castro, 61BM, with no prior history of a known cardiac condition. Risk factors include: Hypertension, diabetes, dyslipidemia, tobaccoism, noncompliance , and sedentary lifestyle. History of ETOH abuse, history of cocaine abuse. History of chronic renal failure requiring dialysis. Admitted to the ED [facility] March 25, 2017 with complaints of shortness of breath, diagnosed with acute CHF, possible community-acquired pneumonia. Echocardiogram March 23, 2017 reveals: EF 30-35%, grade 1 diastolic dysfunction, moderate MR, PAP 70-75 mmHg. Reports he has never had cardiac catheterization, likely related to his noncompliance. There are no records from [facility] of prior follow-up. MARCH 27, 2017: This morning, patient was noted to be in respiratory distress, breathing about 40 times per minute. Chest x-ray continued to reveal significant right pleural effusion. Patient was moved to the CCU. He has undergone urgent dialysis today. Also, he has undergone thoracentesis today. Sitting up in the bedside chair, although he remains tachypneic, he reports he is breathing much easier. Denies chest pain, heaviness or tightness. Seems to be a poor historian however. MARCH 28, 2017: Sitting in bedside chair this morning, patient states he is breathing much better though he remains slightly tachypneic with his speech. Denies chest pain, heaviness or tightness. He states he can normally perform his activities without symptoms of chest pain, heaviness or tightness. Again, patient is a poor historian and I suspect that he has limited exercise tolerance. Patient reports he was doing relatively well until 3 weeks ago when he began to notice his lower extremities swelling. He then became more short of breath and this is simply progressed. He is scheduled for dialysis today hoping to remove 4-5 kg as tolerated. Patient acknowledges that he does use cocaine frequently and today reports he used it several weeks ago. At this point, continue to treat for acute on chronic CHF, possible CAP, pulmonary hypertension. No chest x-ray this morning and I will reorder that. Limited air movement in the right lung field. Will further discuss with Dr. Kingsley and await additional recommendations. MARCH 29, 2017: Patient required chest tube placement yesterday for recurrent massive right pleural effusion. He has put out 4 L in the past 24 hours, fairly exudative. Plans to do a probable pleurodesis in the next few days. He is much more comfortable sitting up in the bedside chair this morning. Chest x- ray reveals right lung fully expanded. Scheduled for dialysis again today. Vital signs are stable as are labs. Will further discuss with Dr. Kingsley and await additional recommendations. ASSESSMENT/PLAN: 1. SOB - multifactorial to include acute on chronic CHF, possible CAP, pulmonary hypertension. Continue current plan of care 2. CARDIOMYOPATHY - has never undergone cardiac catheterization therefore difficult to categorize etiology of cardiomyopathy. Continue beta-bijal, low- dose Aspirin. 3. ACUTE ON CHRONIC CHF - secondary to systolic dysfunction (EF 30-35%) and diastolic dysfunction. NYHA Class IV. Continue with beta-blockers, avoiding ERIC inhibitor at this time. Continue with strict I&O, daily weights, dialysis as needed. 4. HYPERTENSION - well controlled. Will adjust medications accordingly during hospital stay 5. PULMONARY HYPERTENSION, SEVERE - PAP 70 - 75 mmHg 6. ESRD ON HD - continue dialysis as needed. 7. ANEMIA IN CKD - following daily. 8. DIABETES - sliding scale 9. PLEURAL EFFUSION, RIGHT - status post thoracentesis and now pleural tube insertion with possible pleurodesis in next few days. 10. ELEVATED BILIRUBIN - may be related to passive congestion or chronic alcohol abuse. Avoiding lipid-lowering agents or other hepatotoxic medications 11. HISTORY OF NON-COMPLIANCE - reiterated the importance of compliance. Should the patient be able to demonstrate compliance, including no longer using cocaine routinely, he may be a candidate for additional workup such as cardiac catheterization and/or ICD 12. FREQUENT COCAINE/ALCOHOL/TOBACCO USE - greater than 5 minutes was spent today discussing the merits of cocaine cessation, alcohol cessation and tobacco cessation. Exam (Progress Note) - Constitutional Vitals: Period Temp Pulse Resp BP Sys/Figueroa Pulse Ox Last 24 Hr 96.8 F-98.0 F 76-88 14-25 88-127/51-94 94-100 Exam: General: [Gentleman who is older than his stated age. Slightly tachypneic at rest. ] [Pleasant and cooperative. ] [Appears comfortable.] HEENT: [Bilateral arcus, normocephalic, atraumatic. Poor dentition noted mucous membranes moist. No jaundice noted. Conjunctiva moist and clear, sclerae anicteric] Neck: 6 cm JVD to jaw. No thyromegaly or lymphadenopathy noted. No carotid bruit appreciated Cardiac: [Regular rate and rhythm.] [II/ holosystolic murmur heard best at fifth intercostal space to the left. Lungs: [Right lung field with diminished sounds, crackles noted posteriorly in the left lower lung ellis. Right chest tube in place draining straw colored fluid. ] Oxygen in use via nasal cannula Abdomen: Bowel sounds normoactive. Nontender. No abdominal bruit or thrill noted. No masses noted. Musculoskeletal: Decreased range of motion is noted. Arthritic changes noted in hands and feet Extremities: No clubbing, cyanosis noted. [3-4+ pitting edema noted bilateral lower extremities extending to hips. ] Upper extremity pulses 2+. Difficult to assess for pulses due to edema lower extremity pulses 2+. Capillary refill less than 3 seconds. Skin: No unusual lesions or rashes. No skin breakdown appreciated. Neuro: Awake, alert and oriented 3. Moves all extremities well without hemiparesis or paralysis. No essential tremor is appreciated. Result/EKG - Labs CBC & BMP: 03/29/17 03:46 03/29/17 03:46 Lab Results: I have reviewed the past 24 hour labs Labs: Laboratory Results - last 24 hr 03/28/17 03/28/17 03/28/17 11:45 17:03 19:52 WBC RBC Hgb Hct MCV MCH MCHC RDW Plt Count MPV Neut % (Auto) Lymph % (Auto) Walsh % (Auto) Eos % (Auto) Baso % (Auto) Neut # (Auto) Lymph # (Auto) Walsh # (Auto) Eos # (Auto) Baso # (Auto) Immature Gran % Nucleated RBC % Immature Gran # Nucleated RBCs # Immature Plt Fraction Sodium Potassium Chloride Carbon Dioxide Anion Gap BUN Creatinine GFR Calculation BUN/Creatinine Ratio Glucose POC Glucose 119 H 94 146 H Calculated Osmolality Calcium Magnesium 03/29/17 03/29/17 03/29/17 03:46 03:46 07:03 WBC 4.8 RBC 3.86 Hgb 11.8 L Hct 35.4 L MCV 91.7 MCH 31 MCHC 33.3 RDW 16.4 Plt Count 133 MPV 11.0 Neut % (Auto) 80.9 H Lymph % (Auto) 10.4 L Walsh % (Auto) 7.7 Eos % (Auto) 0.4 Baso % (Auto) 0.2 Neut # (Auto) 3.9 Lymph # (Auto) 0.5 L Walsh # (Auto) 0.4 Eos # (Auto) 0.0 Baso # (Auto) 0.0 Immature Gran % 0.4 Nucleated RBC % 0.0 Immature Gran # 0.02 Nucleated RBCs # 0.00 Immature Plt Fraction 0.0 Sodium 134 L Potassium 4.0 Chloride 99 Carbon Dioxide 26 Anion Gap 13.0 BUN 46 H Creatinine 6.20 H GFR Calculation 13 BUN/Creatinine Ratio 7.00 Glucose 149 H POC Glucose 147 H Calculated Osmolality 282.2 Calcium 7.8 L Magnesium 2.2 - Diagnostic Findings Procedure: Chest x-ray: report reviewed by me - EKG EKG results: interpreted by mt EKG shows: sinus rhythm <Maren Kingsley - Last Filed: 03/29/17 16:29> Cardiology - PN: Subj Interval history: I have personally interviewed and evaluated the patient, reviewed the chart and discussed medical decision-making with Practitioner Jann. I have read this note and agree with her documentation here in. Exam (Progress Note) - Constitutional Vitals: Period Temp Pulse Resp BP Sys/Figueroa Pulse Ox Last 24 Hr 96.8 F-97.3 F 76-88 14-25 85-127/48-84 94-100 Result/EKG - Labs CBC & BMP: 03/29/17 03:46 03/29/17 03:46 Labs: Laboratory Results - last 24 hr 03/28/17 03/28/17 03/29/17 17:03 19:52 03:46 WBC 4.8 RBC 3.86 Hgb 11.8 L Hct 35.4 L MCV 91.7 MCH 31 MCHC 33.3 RDW 16.4 Plt Count 133 MPV 11.0 Neut % (Auto) 80.9 H Lymph % (Auto) 10.4 L Walsh % (Auto) 7.7 Eos % (Auto) 0.4 Baso % (Auto) 0.2 Neut # (Auto) 3.9 Lymph # (Auto) 0.5 L Walsh # (Auto) 0.4 Eos # (Auto) 0.0 Baso # (Auto) 0.0 Immature Gran % 0.4 Nucleated RBC % 0.0 Immature Gran # 0.02 Nucleated RBCs # 0.00 Immature Plt Fraction 0.0 Sodium Potassium Chloride Carbon Dioxide Anion Gap BUN Creatinine GFR Calculation BUN/Creatinine Ratio Glucose POC Glucose 94 146 H Calculated Osmolality Calcium Magnesium 03/29/17 03/29/17 03/29/17 03:46 07:03 11:19 WBC RBC Hgb Hct MCV MCH MCHC RDW Plt Count MPV Neut % (Auto) Lymph % (Auto) Walsh % (Auto) Eos % (Auto) Baso % (Auto) Neut # (Auto) Lymph # (Auto) Walsh # (Auto) Eos # (Auto) Baso # (Auto) Immature Gran % Nucleated RBC % Immature Gran # Nucleated RBCs # Immature Plt Fraction Sodium 134 L Potassium 4.0 Chloride 99 Carbon Dioxide 26 Anion Gap 13.0 BUN 46 H Creatinine 6.20 H GFR Calculation 13 BUN/Creatinine Ratio 7.00 Glucose 149 H POC Glucose 147 H 166 H Calculated Osmolality 282.2 Calcium 7.8 L Magnesium 2.2 03/29/17 16:22 WBC RBC Hgb Hct MCV MCH MCHC RDW Plt Count MPV Neut % (Auto) Lymph % (Auto) Walsh % (Auto) Eos % (Auto) Baso % (Auto) Neut # (Auto) Lymph # (Auto) Walsh # (Auto) Eos # (Auto) Baso # (Auto) Immature Gran % Nucleated RBC % Immature Gran # Nucleated RBCs # Immature Plt Fraction Sodium Potassium Chloride Carbon Dioxide Anion Gap BUN Creatinine GFR Calculation BUN/Creatinine Ratio Glucose POC Glucose 94 Calculated Osmolality Calcium Magnesium
--- NOTE | 2017-03-29 11:57 | Hospitalist Progress Note ---
Assessment and Plan (1) Acute respiratory failure Status: Acute Assessment and plan: Improved tremendously with dialysis and pigtail drain. Will attempt pleurodesis soon Current Visit: Yes (2) Acute on chronic systolic CHF (congestive heart failure) Status: Acute Assessment and plan: Continue daily dialysis. Discussed fluid restriction with patient again. Current Visit: No (3) Cardiomyopathy, idiopathic Status: Chronic Assessment and plan: echo ef 30% with mod MVR and severe TVR with pap 70 and diastolic dysfunction Current Visit: No (4) Essential (primary) hypertension Status: Chronic Assessment and plan: decrease coreg 6.25 mg po bid Current Visit: No (5) Moderate to severe pulmonary hypertension Status: Chronic Assessment and plan: severe Current Visit: No (6) End stage renal disease on dialysis Problem details: No acute indication for HD today. Probably 6-7 kg above true dry weight. Status: Chronic Assessment and plan: dialysis again today will move to fifth floor Current Visit: No (7) Anemia in chronic kidney disease (CKD) Status: Deleted Assessment and plan: hgb stable will monitor, started protonix Current Visit: No (8) Type 2 diabetes mellitus Status: Chronic Assessment and plan: bs controlled, cont lantus 5 units daily Current Visit: No (9) Pleural effusion, right Status: Acute Assessment and plan: almost completely resolution with pigtail cath Current Visit: Yes Hospitalist: Subjective Interval history: Discussed his case with both Dr. De Almeida and Dr. Gay. Repeat chest x- ray this morning shows almost complete resolution of the right pleural effusion. Pigtail still in good position. Dr. Gay is hopeful that he can give him some pleurodesis and re-adhered those watts. Pathology says there is no evidence of malignancy. Only inflammatory cells. Patient will be moved to the fifth floor. We will continue on dialysis. Patient no longer requires a monitor. Exam - Constitutional Vitals: Period Temp Pulse Resp BP Sys/Figueroa Pulse Ox Last 24 Hr 96.8 F-97.3 F 76-88 14-25 85-127/48-84 94-100 Exam: Heart Rate-[RRR] Lungs-[good air movement bilaterally significant improvement on right GI-[+bs soft, NT] Ext-[2+ pitting edema up his thighs but improving] Neuro [Motor 5/5], [alert and oriented times 3] psych [pleasant mood and affect] General [no acute distress] Results - Labs CBC & BMP: 03/29/17 03:46 03/29/17 03:46 Lab Results: I have reviewed the past 24 hour labs Labs: Blood cultures negative no growth. Pleural fluid no evidence of infection. Pathology shows no malignancy. - Diagnostic Findings Procedure: Chest x-ray: report reviewed by me (Only minimal residual right pleural effusion.)
[2017-03-29] MEDS ORDERED: CARVEDILOL 6.25 MG TABLET PO SCH (12:00)
--- NOTE | 2017-03-29 14:01 | Dialysis Note ---
Dialysis Note - Dialysis Note Mr. Mistry is seen during his hemodialysis. We are removing 4-5 kg today with ultrafiltration alone and will dialyze again tomorrow and remove more then. The biggest issue we have with Mr. Castro is trying to get him to curtail his oral intake of fluids enough that his fluid needs can be reasonably managed with hemodialysis. Blood pressure is stable and he is tolerating today' s dialysis well
[2017-03-29] MEDS: ACETAMINOPHEN 325 MG TABLET PO PRN (21:34)
[2017-03-30] MEDS: ALBUTEROL/IPRATROPIUM 3 ML NEB RESP TX SCH ×6 (02:50→23:00)
[2017-03-30 05:45] LABS: Basophils % 0.4 % (0.0-0.8); Eosinophils # 0.1 10*3/uL (0.0-0.87); Eosinophils % 1.6 % (0.00-10.9); Hematocrit 34.8 VOL% (42.0-52.0); Hemoglobin 11.6 GM/DL (14.0-18.0); Immature Granulocytes % 1.1 %; Immature Granulocytes Absolute 0.05 #; Lymphocytes # 0.7 10*3/uL (1.4-4.0); Lymphocytes % 15.5 % (21.2-54.2); Mean Corpuscular HGB Conc 33.3 GM/DL (32-36); Mean Corpuscular Hemoglobin 31 PG (27-34); Mean Corpuscular Volume 91.8 FL (87-102); Mean Platelet Volume 10.2 FL (9.6-12.0); Monocytes # 0.4 10*3/uL (0.11-0.8); Monocytes % 9.1 % (1.7-12.7); Neutrophils # 3.3 10*3/uL (1.4-7.4); Neutrophils % 72.3 % (38.7-73.9); Platelet Count 148 T/CUMM (130-400); Red Blood Count 3.79 MC/CUMM (3.8-5.5); Red Cell Distribution Width 16.6 % (9.3-17.3); White Blood Count 4.5 T/CUMM (4-12)
[2017-03-30 06:19] LABS: Calcium 7.4 MG/DL (8.5-10.1); Magnesium 2.2 MG/DL (1.8-2.4); Osmolality,Calculated 289.1 MOS/KG (273-304); Potassium 4.1 MMOL/L (3.5-5.1)
--- NOTE | 2017-03-30 07:52 | Pulmonology Progress Note ---
Pulmonary - PN: Subj Interval history: This 61-year-old black male is on dialysis and has anasarca. He has had recurring massive right pleural effusions. Now has a pleural catheter in the right side that is put out 4 L in the last 24 hours. The earlier pleural fluid was actually barely exudative. We will probably want to do a pleurodesis in a day or 2 on him. 03/30/2017 still producing a good bit of pleural fluid but it has reduced considerably since yesterday. Recheck tomorrow and decide if pleurodesis may be helpful. I would prefer not to do that if we can get the fluid off with dialysis. Patient is complaining of cramping when trying to get fluid off. Exam (Progress Note) - Constitutional Vitals: Period Temp Pulse Resp BP Sys/Figueroa Pulse Ox Last 24 Hr 96.7 F-98.3 F 72-88 16-22 85-138/48-78 93-100 Exam: Patient's alert oriented vital signs normal. Pupils react to light. Throat is clear. Neck supple no bruits. Chest reveals good breath sounds on the right side, left lung sounds clear. Right pleural catheter is in place. Heart normal rate and rhythm no murmurs. abdomen soft nontender no masses. Extremities show 4+ edema. Results - Labs CBC & BMP: 03/30/17 05:26 03/30/17 05:26 Lab Results: I have reviewed the past 24 hour labs Assessment and Plan (1) Cardiomyopathy, idiopathic Status: Chronic Assessment and plan: Ejection fraction 35%. Also has secondary pulmonary hypertension with peak pulmonary artery pressure of 70. Would be best treated by offloading with dialysis. Apparently is noncompliant with diet and fluid intake. 03/29/17 congestive heart failure is much improved after yesterday's dialysis. 03/30/2017 heart size is not enlarged. Fluid overload due to combination of heart disease and renal failure. Current Visit: No (2) ESRD (end stage renal disease) on dialysis Status: Chronic Assessment and plan: Getting dialysis at present. In my view needs about 30-40 pounds taken off. This of course would take a number of weeks 03/29/17 dialysis works when he has them. 03/30/2017 continuing with dialysis. Current Visit: Yes (3) COPD (chronic obstructive pulmonary disease) Status: Acute Assessment and plan: Treat with bronchodilators. However I think most of the wheezing is from the fluid overload. 03/29/17 no active bronchospasm. Current Visit: Yes (4) Volume overload Status: Acute Assessment and plan: Has anasarca. 03/29/17 weight down 9 kg from admission. Still has peripheral edema. 03/30/2017 this is improved. Still has flank edema and leg edema. However the leg edema seems to be chronic and would be difficult to remove. Current Visit: Yes (5) Pleural effusion, right Status: Acute Assessment and plan: Agree with an indwelling right pleural catheter. This will help with his dyspnea while we are getting the fluid off with dialysis. 03/29/17 right lung fully expanded with pleural catheter in place. Will watch drainage and plan pleurodesis when it can be done. Cytology is still pending from the pleural fluid. Technically the total protein level was such that this is an exudate. I suspect that it is just an old transudate. 03/30/[address] About 250 mL out in the last 16 hours, so it is decreasing somewhat. Would prefer not to do pleurodesis. Current Visit: Yes
[2017-03-30] MEDS ORDERED: ALBUMIN 25% 12.5 GM in PREMIX 1 EACH IV PRN (08:29)
--- NOTE | 2017-03-30 08:29 | Nephrology Progress Note ---
Nephrology - PN: Subj Interval history: Mr. Castro is seen in follow-up of his end-stage renal disease. He tolerated removal of only about 2 kg of volume yesterday before he complained of severe cramping. He still has woody edema of his lower extremities but less edema in his thighs. His most recent albumin was 2.8. His blood pressure today is 130 systolic on very low-dose Coreg. We will plan to hemodialyze him today and remove fluid as tolerated and will also give albumin if his blood pressure drops. We discussed the cramping issue with him and also discussed the absolute need to reduce his fluid intake. Exam (PN)-Nephrology - Vital Signs Vital signs: Period Temp Pulse Resp BP Sys/Figueroa Pulse Ox Last 24 Hr 96.7 F-98.3 F 72-88 16-22 85-138/48-73 93-100 - Lab 03/30/17 05:26 03/30/17 05:26 Most recent lab results ABG pH 7.371 (7.35-7.45) 03/25/17 22:30 ABG pCO2 42.9 MM HG (35-48) 03/25/17 22:30 ABG pO2 60.5 MM HG (80-95) L 03/25/17 22:30 ABG HCO3 24.3 MMOL/L (20-26) 03/25/17 22:30 ABG O2 Saturation 91.1 % (95-100) L 03/25/17 22:30 Calcium 7.4 MG/DL (8.5-10.1) L 03/30/17 05:26 Magnesium 2.2 MG/DL (1.8-2.4) 03/30/17 05:26
[2017-03-30] MEDS: PANTOPRAZOLE 40 MG TABLET PO SCH (08:43)
[2017-03-30] MEDS: ASPIRIN EC 81 MG TABLET PO SCH (08:43)
[2017-03-30] MEDS: CARVEDILOL 3.125 MG TABLET PO SCH ×2 (08:43→21:34)
[2017-03-30] MEDS: CALCIUM ACETATE 667 MG CAPSULE PO SCH ×3 (08:43→18:12)
[2017-03-30] MEDS: INSULIN GLARGINE 100 UNIT/ML SUBCUT SCH ×2 (08:44→08:48)
[2017-03-30] MEDS: INSULIN LISPRO 100 UNIT/ML SUBCUT SCH ×5 (08:44→21:34)
[2017-03-30] MEDS: PIPERACILLIN/TAZOBACTAM 3,375 MG in SODIUM CHLORIDE 0.9% 100 ML IV SCH ×3 (08:45→21:35)
--- NOTE | 2017-03-30 10:47 | Hospitalist Progress Note ---
Assessment and Plan (1) Essential (primary) hypertension Status: Chronic Assessment and plan: Continue low dose coreg Current Visit: No (2) Type 2 diabetes mellitus Status: Chronic Assessment and plan: Lantus 5 units daily Current Visit: No (3) ESRD (end stage renal disease) on dialysis Status: Chronic Assessment and plan: HD again today Current Visit: No (4) Acute respiratory failure Status: Acute Current Visit: Yes (5) Pleural effusion, right Status: Acute Assessment and plan: Pulmonary assisting Pigtail catheter in place Current Visit: Yes Hospitalist: Subjective Interval history: No acute events overnight. Patient reports that his breathing is improved. He is concerned about cramping with dialysis. Exam - Constitutional Vitals: Period Temp Pulse Resp BP Sys/Figueroa Pulse Ox Last 24 Hr 96.7 F-98.3 F 72-88 16-22 110-138/61-73 93-100 General appearance: over weight - Head Head exam: Present: normocephalic, atraumatic - Eye Eye exam: Present: EOMI Pupils: Present: LEELA - ENT ENT exam: Present: normal exam - Neck Neck exam: Present: normal inspection - Respiratory Respiratory exam: Present: clear to auscultation bilaterally, other (chest tube in place) - Cardiovascular Cardiovascular exam: Present: regular rate and rhythm - GI/Abdominal GI/Abdominal exam: Present: normal bowel sounds, soft. Absent: tenderness, rebound - Extremities Exam Extremities exam: Present: normal inspection - Back Exam Back exam: Present: normal inspection - Neurological Exam Neurological exam: Present: alert, oriented X3 - Psychiatric Psychiatric exam: Present: normal affect, normal mood - Skin Skin exam: Present: warm, intact Results - Labs CBC & BMP: 03/30/17 05:26 03/30/17 05:26
--- NOTE | 2017-03-30 13:51 | Cardiology Progress Note ---
Assessment and Plan - Time spent with patient Time spent with patient: Greater than 30 minutes (1) CKD (chronic kidney disease) stage 5, GFR less than 15 ml/min Status: Chronic Assessment and plan: SEE PLAN OF CARE LISTED BELOW Current Visit: No (2) Diabetes 1.5, managed as type 2 Status: Chronic Assessment and plan: SEE PLAN OF CARE LISTED BELOW Current Visit: No (3) Hypertension Status: Chronic Assessment and plan: SEE PLAN OF CARE LISTED BELOW Current Visit: No Qualifiers: Hypertension type: essential hypertension Qualified Code(s): I10 - Essential (primary) hypertension (4) Mitral regurgitation Status: Chronic Assessment and plan: SEE PLAN OF CARE LISTED BELOW Current Visit: No Qualifiers: Cardiac valve disease etiology: nonrheumatic Qualified Code(s): I34.0 - Nonrheumatic mitral (valve) insufficiency (5) Essential (primary) hypertension Status: Chronic Assessment and plan: SEE PLAN OF CARE LISTED BELOW Current Visit: No (6) Diabetes mellitus Status: Chronic Assessment and plan: SEE PLAN OF CARE LISTED BELOW Current Visit: No Qualifiers: Diabetes mellitus type: type 2 Chronic kidney disease stage: on chronic dialysis (7) Anemia Status: Chronic Assessment and plan: SEE PLAN OF CARE LISTED BELOW Current Visit: No Qualifiers: Anemia type: iron deficiency Iron deficiency anemia type: unspecified iron deficiency Qualified Code(s): D50.9 - Iron deficiency anemia, unspecified (8) Chronic renal failure Status: Acute Current Visit: No (9) Moderate to severe pulmonary hypertension Status: Chronic Current Visit: No (10) Acute on chronic systolic CHF (congestive heart failure) Status: Acute Assessment and plan: SEE PLAN OF CARE LISTED BELOW Current Visit: No (11) End stage renal disease on dialysis Problem details: No acute indication for HD today. Probably 6-7 kg above true dry weight. Status: Chronic Assessment and plan: SEE PLAN OF CARE LISTED BELOW Current Visit: No (12) Medical non-compliance Problem details: fluid restriction Status: Acute Assessment and plan: SEE PLAN OF CARE LISTED BELOW Current Visit: No (13) Type 2 diabetes mellitus Status: Chronic Assessment and plan: SEE PLAN OF CARE LISTED BELOW Current Visit: No (14) Elevated LFTs Status: Acute Assessment and plan: SEE PLAN OF CARE LISTED BELOW Current Visit: No (15) Cocaine abuse Status: Chronic Assessment and plan: SEE PLAN OF CARE LISTED BELOW Current Visit: No (16) Community acquired pneumonia Status: Acute Assessment and plan: SEE PLAN OF CARE LISTED BELOW Current Visit: Yes (17) Pleural effusion, right Status: Acute Assessment and plan: SEE PLAN OF CARE LISTED BELOW Current Visit: Yes Cardiology - PN: Subj Interval history: 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 Castro, 61BM, with no prior history of a known cardiac condition. Risk factors include: Hypertension, diabetes, dyslipidemia, tobaccoism, noncompliance , and sedentary lifestyle. History of ETOH abuse, history of cocaine abuse. History of chronic renal failure requiring dialysis. Admitted to the ED [facility] March 25, 2017 with complaints of shortness of breath, diagnosed with acute CHF, possible community-acquired pneumonia. Echocardiogram March 23, 2017 reveals: EF 30-35%, grade 1 diastolic dysfunction, moderate MR, PAP 70-75 mmHg. Reports he has never had cardiac catheterization, likely related to his noncompliance. There are no records from [facility] of prior follow-up. MARCH 27, 2017: This morning, patient was noted to be in respiratory distress, breathing about 40 times per minute. Chest x-ray continued to reveal significant right pleural effusion. Patient was moved to the CCU. He has undergone urgent dialysis today. Also, he has undergone thoracentesis today. Sitting up in the bedside chair, although he remains tachypneic, he reports he is breathing much easier. Denies chest pain, heaviness or tightness. Seems to be a poor historian however. MARCH 28, 2017: Sitting in bedside chair this morning, patient states he is breathing much better though he remains slightly tachypneic with his speech. Denies chest pain, heaviness or tightness. He states he can normally perform his activities without symptoms of chest pain, heaviness or tightness. Again, patient is a poor historian and I suspect that he has limited exercise tolerance. Patient reports he was doing relatively well until 3 weeks ago when he began to notice his lower extremities swelling. He then became more short of breath and this is simply progressed. He is scheduled for dialysis today hoping to remove 4-5 kg as tolerated. Patient acknowledges that he does use cocaine frequently and today reports he used it several weeks ago. At this point, continue to treat for acute on chronic CHF, possible CAP, pulmonary hypertension. No chest x-ray this morning and I will reorder that. Limited air movement in the right lung field. Will further discuss with Dr. Kingsley and await additional recommendations. MARCH 29, 2017: Patient required chest tube placement yesterday for recurrent massive right pleural effusion. He has put out 4 L in the past 24 hours, fairly exudative. Plans to do a probable pleurodesis in the next few days. He is much more comfortable sitting up in the bedside chair this morning. Chest x- ray reveals right lung fully expanded. Scheduled for dialysis again today. Vital signs are stable as are labs. Will further discuss with Dr. Kingsley and await additional recommendations. MARCH 30, 2017: Sitting up in the bedside chair. Chest tube output including less than yesterday. May still require pleurodesis tomorrow per Dr. Gay' note. Scheduled for dialysis today as well. Overall, he is slowly improving. Vital signs are stable. Labs stable as well. Tolerating low-dose beta- bijal. Not much to add from a cardiology standpoint. Will further discuss with Dr. Kingsley and await additional recommendations. ASSESSMENT/PLAN: 1. SOB - multifactorial to include acute on chronic CHF, possible CAP, pulmonary hypertension. Continue current plan of care 2. CARDIOMYOPATHY - has never undergone cardiac catheterization therefore difficult to categorize etiology of cardiomyopathy most likely due to his history of noncompliance, illicit drug abuse. Continue beta-bijal, low-dose Aspirin. 3. ACUTE ON CHRONIC CHF - secondary to systolic dysfunction (EF 30-35%) and diastolic dysfunction. NYHA Class IV. Continue with beta-blockers, avoiding ERIC inhibitor at this time. Continue with strict I&O, daily weights, dialysis as needed. 4. HYPERTENSION - well controlled. Will adjust medications accordingly during hospital stay 5. PULMONARY HYPERTENSION, SEVERE - PAP 70 - 75 mmHg 6. ESRD ON HD - continue dialysis as needed. 7. ANEMIA IN CKD - following daily. 8. DIABETES - sliding scale 9. PLEURAL EFFUSION, RIGHT - status post thoracentesis and now pleural tube insertion with possible pleurodesis tomorrow. 10. ELEVATED BILIRUBIN - may be related to passive congestion or chronic alcohol abuse. Avoiding lipid-lowering agents or other hepatotoxic medications 11. HISTORY OF NON-COMPLIANCE - reiterated the importance of compliance. Should the patient be able to demonstrate compliance, including no longer using cocaine routinely, he may be a candidate for additional workup such as cardiac catheterization and/or ICD 12. FREQUENT COCAINE/ALCOHOL/TOBACCO USE - greater than 5 minutes was spent today discussing the merits of cocaine cessation, alcohol cessation and tobacco cessation. Exam (Progress Note) Exam (Progress Note) - Constitutional Vitals: Period Temp Pulse Resp BP Sys/Figueroa Pulse Ox Last 24 Hr 96.7 F-98.3 F 71-88 16-22 110-138/61-73 93-100 Exam: General: [Gentleman who is older than his stated age. Slightly tachypneic at rest. ] [Pleasant and cooperative. ] [Appears comfortable.] HEENT: [Bilateral arcus, normocephalic, atraumatic. Poor dentition noted mucous membranes moist. No jaundice noted. Conjunctiva moist and clear, sclerae anicteric] Neck: 6 cm JVD to jaw. No thyromegaly or lymphadenopathy noted. No carotid bruit appreciated Cardiac: [Regular rate and rhythm.] [II/ holosystolic murmur heard best at fifth intercostal space to the left. Lungs: [Right lung field relatively clear. Left lung ellis clear. Right chest tube in place draining straw colored fluid. ] Oxygen in use via nasal cannula Abdomen: Bowel sounds normoactive. Nontender. No abdominal bruit or thrill noted. No masses noted. Musculoskeletal: Decreased range of motion is noted. Arthritic changes noted in hands and feet Extremities: No clubbing, cyanosis noted. [3-4+ pitting edema noted bilateral lower extremities slightly improved. ] Upper extremity pulses 2+. Difficult to assess for pulses due to edema lower extremity pulses 1+. Capillary refill less than 3 seconds. Skin: No unusual lesions or rashes. No skin breakdown appreciated. Neuro: Awake, alert and oriented 3. Moves all extremities well without hemiparesis or paralysis. No essential tremor is appreciated. Result/EKG - Labs CBC & BMP: 03/30/17 05:26 03/30/17 05:26 Lab Results: I have reviewed the past 24 hour labs Labs: Laboratory Results - last 24 hr 03/29/17 03/29/17 03/30/17 16:22 19:14 05:26 WBC 4.5 RBC 3.79 L Hgb 11.6 L Hct 34.8 L MCV 91.8 MCH 31 MCHC 33.3 RDW 16.6 Plt Count 148 MPV 10.2 Neut % (Auto) 72.3 Lymph % (Auto) 15.5 L [place] % (Auto) 9.1 Eos % (Auto) 1.6 Baso % (Auto) 0.4 Neut # (Auto) 3.3 Lymph # (Auto) 0.7 L [place] # (Auto) 0.4 Eos # (Auto) 0.1 Baso # (Auto) 0.0 Immature Gran % 1.1 Nucleated RBC % 0.0 Immature Gran # 0.05 Nucleated RBCs # 0.00 Immature Plt Fraction 0.0 Sodium Potassium Chloride Carbon Dioxide Anion Gap BUN Creatinine GFR Calculation BUN/Creatinine Ratio Glucose POC Glucose 94 179 H Calculated Osmolality Calcium Magnesium 03/30/17 03/30/17 03/30/17 05:26 07:11 11:30 WBC RBC Hgb Hct MCV MCH MCHC RDW Plt Count MPV Neut % (Auto) Lymph % (Auto) [place] % (Auto) Eos % (Auto) Baso % (Auto) Neut # (Auto) Lymph # (Auto) [place] # (Auto) Eos # (Auto) Baso # (Auto) Immature Gran % Nucleated RBC % Immature Gran # Nucleated RBCs # Immature Plt Fraction Sodium 135 L Potassium 4.1 Chloride 99 Carbon Dioxide 26 Anion Gap 14.1 BUN 59 H Creatinine 7.70 H GFR Calculation 10 BUN/Creatinine Ratio 7.00 Glucose 157 H POC Glucose 152 H 147 H Calculated Osmolality 289.1 Calcium 7.4 L Magnesium 2.2 - Diagnostic Findings Procedure: Chest x-ray: report reviewed by me - EKG EKG results: interpreted by id EKG shows: sinus rhythm
--- NOTE | 2017-03-30 14:15 | Dialysis Note ---
Dialysis Note - Dialysis Note Mr. Castro is seen during his hemodialysis. He is tolerating dialysis well today with a blood pressure 130 systolic. We will give albumin during dialysis should his blood pressure fall in view of his low serum albumin. We are aiming to remove about 4 kg.
[2017-03-31] MEDS: ALBUTEROL/IPRATROPIUM 3 ML NEB RESP TX SCH ×6 (03:30→23:56)
[2017-03-31 06:01] LABS: Basophils % 0.2 % (0.0-0.8); Eosinophils # 0.1 10*3/uL (0.0-0.87); Eosinophils % 1.9 % (0.00-10.9); Hematocrit 34.7 VOL% (42.0-52.0); Hemoglobin 11.6 GM/DL (14.0-18.0); Immature Granulocytes % 0.9 %; Immature Granulocytes Absolute 0.05 #; Lymphocytes # 0.6 10*3/uL (1.4-4.0); Lymphocytes % 11.5 % (21.2-54.2); Mean Corpuscular HGB Conc 33.4 GM/DL (32-36); Mean Corpuscular Hemoglobin 31 PG (27-34); Mean Corpuscular Volume 91.6 FL (87-102); Monocytes # 0.5 10*3/uL (0.11-0.8); Monocytes % 8.5 % (1.7-12.7); Neutrophils # 4.2 10*3/uL (1.4-7.4); Platelet Count 172 T/CUMM (130-400); Red Blood Count 3.79 MC/CUMM (3.8-5.5); Red Cell Distribution Width 16.8 % (9.3-17.3); White Blood Count 5.4 T/CUMM (4-12)
[2017-03-31 06:23] LABS: Calcium 7.2 MG/DL (8.5-10.1); Magnesium 2.2 MG/DL (1.8-2.4); Osmolality,Calculated 292.7 MOS/KG (273-304); Potassium 4.3 MMOL/L (3.5-5.1)
--- NOTE | 2017-03-31 07:11 | XRay Report ---
Exam: XR chest 1V portable Date: 03/31/2017 4:00 AM Indication: Right-sided pleural effusion Comparison: 03/29/2017 Technical: AP Findings: Mild prominence the cardiac silhouette. Tiny low volume effusions are present. Bibasilar interstitial infiltrates are present. No pneumothorax. Mediastinum is intact. ASVD is present. Impression: 1. Cardiomegaly 2. Increasing low volume effusions and interstitial edema and/or atelectatic change or infiltrates in both bases. PROCEDURE INTERPRETED AT [facility] DEPARTMENT OF RADIOLOGY Final Report Signed by: Dr. Fred Bardales
--- NOTE | 2017-03-31 07:17 | Pulmonology Progress Note ---
Pulmonary - PN: Subj Interval history: This 61-year-old black male is on dialysis and has anasarca. He has had recurring massive right pleural effusions. Now has a pleural catheter in the right side that is put out 4 L in the last 24 hours. The earlier pleural fluid was actually barely exudative. We will probably want to do a pleurodesis in a day or 2 on him. 03/30/2017 still producing a good bit of pleural fluid but it has reduced considerably since yesterday. Recheck tomorrow and decide if pleurodesis may be helpful. I would prefer not to do that if we can get the fluid off with dialysis. Patient is complaining of cramping when trying to get fluid off. 03/31/17 only 290 mL of pleural fluid out from chest tube yesterday. I do not think a pleurodesis would be helpful in him. Probably could remove the pleural catheter after dialysis tomorrow if less than 200 mL a day output. Need to control his fluids with dialysis and diet. Exam (Progress Note) - Constitutional Vitals: Period Temp Pulse Resp BP Sys/Figueroa Pulse Ox Last 24 Hr 97.1 F-98.9 F 63-98 16-21 124-141/63-89 93-100 Exam: Patient's alert oriented vital signs normal. Pupils react to light. Throat is clear. Neck supple no bruits. Chest reveals good breath sounds on the right side, left lung sounds clear. Right pleural catheter is in place. Heart normal rate and rhythm no murmurs. abdomen soft nontender no masses. Extremities show 3+ woody edema. Results - Labs CBC & BMP: 03/31/17 05:22 03/31/17 05:22 Lab Results: I have reviewed the past 24 hour labs - Diagnostic Findings Procedure: Chest x-ray: image reviewed by me (Pleural catheter in place on the right. Minimal bilateral effusions.) Assessment and Plan (1) Cardiomyopathy, idiopathic Status: Chronic Assessment and plan: Ejection fraction 35%. Also has secondary pulmonary hypertension with peak pulmonary artery pressure of 70. Would be best treated by offloading with dialysis. Apparently is noncompliant with diet and fluid intake. 03/29/17 congestive heart failure is much improved after yesterday's dialysis. 03/30/2017 heart size is not enlarged. Fluid overload due to combination of heart disease and renal failure. 03/31/17 congestive heart failure fairly well controlled with medications and volume control with dialysis. Still a little ahead on fluids. Current Visit: No (2) ESRD (end stage renal disease) on dialysis Status: Chronic Assessment and plan: Getting dialysis at present. In my view needs about 30-40 pounds taken off. This of course would take a number of weeks 03/29/17 dialysis works when he has them. 03/30/2017 continuing with dialysis. 03/31/2017 was dialyzed yesterday. Should be dialyzed tomorrow. Current Visit: Yes (3) COPD (chronic obstructive pulmonary disease) Status: Acute Assessment and plan: Treat with bronchodilators. However I think most of the wheezing is from the fluid overload. 03/29/17 no active bronchospasm. 03/31/17 no active bronchospasm. Current Visit: Yes (4) Volume overload Status: Acute Assessment and plan: Has anasarca. 03/29/17 weight down 9 kg from admission. Still has peripheral edema. 03/30/2017 this is improved. Still has flank edema and leg edema. However the leg edema seems to be chronic and would be difficult to remove. 03/31/17 managing with dialysis. Weight stable today from yesterday. Current Visit: Yes (5) Pleural effusion, right Status: Acute Assessment and plan: Agree with an indwelling right pleural catheter. This will help with his dyspnea while we are getting the fluid off with dialysis. 03/29/17 right lung fully expanded with pleural catheter in place. Will watch drainage and plan pleurodesis when it can be done. Cytology is still pending from the pleural fluid. Technically the total protein level was such that this is an exudate. I suspect that it is just an old transudate. 03/30/[address] About 250 mL out in the last 16 hours, so it is decreasing somewhat. Would prefer not to do pleurodesis. 03/31/17 cytology negative. This is an old transudate. Do not want to do pleurodesis. Hopefully can pull pleural catheter after another day or 2. Current Visit: Yes
[2017-03-31] MEDS: INSULIN LISPRO 100 UNIT/ML SUBCUT SCH ×4 (08:30→20:03)
--- NOTE | 2017-03-31 09:08 | Nephrology Progress Note ---
Nephrology - PN: Subj Interval history: Mr. Castro is seen in follow-up of his end-stage renal disease. He is doing better and has dialyzed every day this week with attempted fluid removal both with ultrafiltration and during regular dialysis. Because of some hypoalbuminemia we gave him albumin yesterday with dialysis will do that again today. He is putting out only a couple 100 cc of fluid from his pleural catheter a day now. The plan is not to do a pleurodesis. We will plan to dialyze him today and tomorrow and he could be discharged after tomorrow's dialysis. That would have been a maximal effort to get rid of his fluid burden. He has been repeatedly counseled regarding the absolute necessity of fluid restriction. Whether he will comply is yet to be seen. Again I think we would remove the pleural catheter after today while the interventional radiology team is here to do that and dialyzed today and tomorrow. He can be discharged after dialysis tomorrow and resume his usual Monday dialysis schedule as an outpatient Exam (PN)-Nephrology - Vital Signs Vital signs: Period Temp Pulse Resp BP Sys/Figueroa Pulse Ox Last 24 Hr 97.1 F-98.9 F 63-99 16-21 124-141/63-89 93-100 - Lab 03/31/17 05:22 03/31/17 05:22 Most recent lab results ABG pH 7.371 (7.35-7.45) 03/25/17 22:30 ABG pCO2 42.9 MM HG (35-48) 03/25/17 22:30 ABG pO2 60.5 MM HG (80-95) L 03/25/17 22:30 ABG HCO3 24.3 MMOL/L (20-26) 03/25/17 22:30 ABG O2 Saturation 91.1 % (95-100) L 03/25/17 22:30 Calcium 7.2 MG/DL (8.5-10.1) L 03/31/17 05:22 Magnesium 2.2 MG/DL (1.8-2.4) 03/31/17 05:22
[2017-03-31] MEDS: CALCIUM ACETATE 667 MG CAPSULE PO SCH ×3 (09:12→17:29)
[2017-03-31] MEDS: CARVEDILOL 3.125 MG TABLET PO SCH ×2 (09:12→20:04)
[2017-03-31] MEDS: ASPIRIN EC 81 MG TABLET PO SCH (09:12)
[2017-03-31] MEDS: PANTOPRAZOLE 40 MG TABLET PO SCH (09:12)
[2017-03-31] MEDS: INSULIN GLARGINE 100 UNIT/ML SUBCUT SCH (09:13)
[2017-03-31] MEDS: PIPERACILLIN/TAZOBACTAM 3,375 MG in SODIUM CHLORIDE 0.9% 100 ML IV SCH ×2 (09:13→21:07)
[2017-03-31] MEDS ORDERED: SKIN HEALING OINT (AQUAPHOR) 50 GM TUBE TOP PRN (10:43)
--- NOTE | 2017-03-31 11:45 | XRay Report ---
Exam: XR chest post procedure Date: 03/31/2017 11:14 AM Indication: Removal of the pigtail catheter right lung base Comparison: 03/31/2017 5:15 AM Technical: Inspiration and expiration imaging Findings: There is some atelectatic change present in the basilar regions with low volume left effusion. Mild cardiomegaly. The pigtail catheter from the right lower costophrenic sulcus area has been removed ASVD is present. No pneumothorax. Impression: 1. Removal of the thoracotomy tubes in the right posterior base with underlying atelectatic change and tiny effusions left greater than right 2. Persistent cardiomegaly 3. No pneumothorax PROCEDURE INTERPRETED AT [facility] DEPARTMENT OF RADIOLOGY Final Report Signed by: Dr. Fred Bardales
--- NOTE | 2017-03-31 15:30 | Cardiology Progress Note ---
Charles Skaggs April RN, am scribing for, and in the presence of, Tina Forte NP 15:29. <Tina Forte - Last Filed: 03/31/17 15:27> Assessment and Plan - Time spent with patient Time spent with patient: Greater than 30 minutes Time spent discussing smoking cessation with patient: 3 to 10 minutes (1) Shortness of breath Status: Acute Assessment and plan: SEE PLAN OF CARE LISTED BELOW Current Visit: Yes (2) Acute on chronic systolic CHF (congestive heart failure) Status: Acute Assessment and plan: SEE PLAN OF CARE LISTED BELOW Current Visit: Yes (3) Cardiomyopathy Status: Chronic Assessment and plan: SEE PLAN OF CARE LISTED BELOW Current Visit: Yes (4) ESRD (end stage renal disease) on dialysis Status: Chronic Assessment and plan: SEE PLAN OF CARE LISTED BELOW Current Visit: Yes (5) Cocaine abuse Status: Chronic Assessment and plan: SEE PLAN OF CARE LISTED BELOW Current Visit: No (6) Diabetes 1.5, managed as type 2 Status: Chronic Assessment and plan: SEE PLAN OF CARE LISTED BELOW Current Visit: No (7) Hypertension Status: Chronic Assessment and plan: SEE PLAN OF CARE LISTED BELOW Current Visit: No Qualifiers: Hypertension type: essential hypertension Qualified Code(s): I10 - Essential (primary) hypertension (8) Mitral regurgitation Status: Chronic Assessment and plan: SEE PLAN OF CARE LISTED BELOW Current Visit: No Qualifiers: Cardiac valve disease etiology: nonrheumatic Qualified Code(s): I34.0 - Nonrheumatic mitral (valve) insufficiency (9) Noncompliance with diet and medication regimen Status: Acute Current Visit: No (10) Diabetes mellitus Status: Chronic Assessment and plan: SEE PLAN OF CARE LISTED BELOW Current Visit: No Qualifiers: Diabetes mellitus type: type 2 Chronic kidney disease stage: on chronic dialysis (11) Moderate to severe pulmonary hypertension Status: Chronic Assessment and plan: SEE PLAN OF CARE LISTED BELOW Current Visit: No Cardiology - PN: Subj Interval history: MEDICAL CHEMIST: (NEW) DR. COOPER Mr. Castro, 61BM, with no prior history of a known cardiac condition. Risk factors include: Hypertension, diabetes, dyslipidemia, tobaccoism, noncompliance , and sedentary lifestyle. History of ETOH abuse, history of cocaine abuse. History of chronic renal failure requiring dialysis. Admitted to the ED [facility] March 25, 2017 with complaints of shortness of breath, diagnosed with acute CHF, possible community-acquired pneumonia. Echocardiogram March 23, 2017 reveals: EF 30-35%, grade 1 diastolic dysfunction, moderate MR, PAP 70-75 mmHg. Reports he has never had cardiac catheterization, likely related to his noncompliance. There are no records from [facility] of prior follow-up. MARCH 27, 2017: This morning, patient was noted to be in respiratory distress, breathing about 40 times per minute. Chest x-ray continued to reveal significant right pleural effusion. Patient was moved to the CCU. He has undergone urgent dialysis today. Also, he has undergone thoracentesis today. Sitting up in the bedside chair, although he remains tachypneic, he reports he is breathing much easier. Denies chest pain, heaviness or tightness. Seems to be a poor historian however. MARCH 28, 2017: Sitting in bedside chair this morning, patient states he is breathing much better though he remains slightly tachypneic with his speech. Denies chest pain, heaviness or tightness. He states he can normally perform his activities without symptoms of chest pain, heaviness or tightness. Again, patient is a poor historian and I suspect that he has limited exercise tolerance. Patient reports he was doing relatively well until 3 weeks ago when he began to notice his lower extremities swelling. He then became more short of breath and this is simply progressed. He is scheduled for dialysis today hoping to remove 4-5 kg as tolerated. Patient acknowledges that he does use cocaine frequently and today reports he used it several weeks ago. At this point, continue to treat for acute on chronic CHF, possible CAP, pulmonary hypertension. No chest x-ray this morning and I will reorder that. Limited air movement in the right lung field. Will further discuss with Dr. Kingsley and await additional recommendations. MARCH 29, 2017: Patient required chest tube placement yesterday for recurrent massive right pleural effusion. He has put out 4 L in the past 24 hours, fairly exudative. Plans to do a probable pleurodesis in the next few days. He is much more comfortable sitting up in the bedside chair this morning. Chest x- ray reveals right lung fully expanded. Scheduled for dialysis again today. Vital signs are stable as are labs. Will further discuss with Dr. Kingsley and await additional recommendations. MARCH 30, 2017: Sitting up in the bedside chair. Chest tube output including less than yesterday. May still require pleurodesis tomorrow per Dr. Gay' note. Scheduled for dialysis today as well. Overall, he is slowly improving. Vital signs are stable. Labs stable as well. Tolerating low-dose beta- bijal. Not much to add from a cardiology standpoint. Will further discuss with Dr. Kingsley and await additional recommendations. March 31, 2017: Patient is seen this afternoon at dialysis. His pleural catheter has been removed. He denies any chest pain or shortness of breath. Vital signs and labs have been stable. Plans are to dialyze him again tomorrow and hopefully be discharged after that. Will further discuss with Dr. Kingsley and await additional recommendations. ASSESSMENT/PLAN: 1. SOB - multifactorial to include acute on chronic CHF, possible CAP, pulmonary hypertension. Continue current plan of care 2. CARDIOMYOPATHY - has never undergone cardiac catheterization therefore difficult to categorize etiology of cardiomyopathy most likely due to his history of noncompliance, illicit drug abuse. Continue beta-bijal, low-dose Aspirin. 3. ACUTE ON CHRONIC CHF - secondary to systolic dysfunction (EF 30-35%) and diastolic dysfunction. NYHA Class IV. Continue with beta-blockers, avoiding ERIC inhibitor at this time. Continue with strict I&O, daily weights, dialysis as needed. 4. HYPERTENSION - well controlled. Will adjust medications accordingly during hospital stay 5. PULMONARY HYPERTENSION, SEVERE - PAP 70 - 75 mmHg 6. ESRD ON HD - continue dialysis as needed. 7. ANEMIA IN CKD - following daily. 8. DIABETES - sliding scale 9. PLEURAL EFFUSION, RIGHT - pleural catheter has been removed. Pulmonary is following. 10. ELEVATED BILIRUBIN - may be related to passive congestion or chronic alcohol abuse. Avoiding lipid-lowering agents or other hepatotoxic medications 11. HISTORY OF NON-COMPLIANCE - reiterated the importance of compliance. Should the patient be able to demonstrate compliance, including no longer using cocaine routinely, he may be a candidate for additional workup such as cardiac catheterization and/or ICD 12. FREQUENT COCAINE/ALCOHOL/TOBACCO USE - the merits of cocaine, alcohol, tobacco cessation of been discussed. Exam (Progress Note) - Constitutional Vitals: Period Temp Pulse Resp BP Sys/Figueroa Pulse Ox Last 24 Hr 97.6 F-98.9 F 63-99 16-21 124-141/63-89 93-99 Exam: General: [Gentleman who looks older than his stated age.] [Pleasant and cooperative. ] [Appears comfortable.] HEENT: [Bilateral arcus, normocephalic, atraumatic. Poor dentition noted mucous membranes moist. No jaundice noted. Conjunctiva moist and clear, sclerae anicteric] Neck: No thyromegaly or lymphadenopathy noted. No carotid bruit appreciated Cardiac: [Regular rate and rhythm.] [II/ holosystolic murmur heard best at fifth intercostal space to the left. Lungs: [Right lung field relatively clear. Left lung ellis clear.] Oxygen in use via nasal cannula Abdomen: Bowel sounds normoactive. Nontender. No abdominal bruit or thrill noted. No masses noted. Musculoskeletal: Decreased range of motion is noted. Arthritic changes noted in hands and feet Extremities: No clubbing, cyanosis noted. [1-2+ pitting edema noted bilateral lower extremities. ] Upper extremity pulses 2+. Difficult to assess for pulses due to edema lower extremity pulses 1+. Capillary refill less than 3 seconds. Skin: No unusual lesions or rashes. Some skin breakdown noted to left lower extremity, he states he scratched himself. Neuro: Awake, alert and oriented 3. Moves all extremities well without hemiparesis or paralysis. No essential tremor is appreciated. Result/EKG - Labs CBC & BMP: 03/31/17 05:22 03/31/17 05:22 Lab Results: I have reviewed the past 24 hour labs Labs: Laboratory Results - last 24 hr 03/30/17 03/30/17 03/31/17 17:57 19:57 05:22 WBC 5.4 RBC 3.79 L Hgb 11.6 L Hct 34.7 L MCV 91.6 MCH 31 MCHC 33.4 RDW 16.8 Plt Count 172 MPV 10.0 Neut % (Auto) 77.0 H Lymph % (Auto) 11.5 L [place] % (Auto) 8.5 Eos % (Auto) 1.9 Baso % (Auto) 0.2 Neut # (Auto) 4.2 Lymph # (Auto) 0.6 L [place] # (Auto) 0.5 Eos # (Auto) 0.1 Baso # (Auto) 0.0 Immature Gran % 0.9 Nucleated RBC % 0.0 Immature Gran # 0.05 Nucleated RBCs # 0.00 Immature Plt Fraction 0.0 Sodium Potassium Chloride Carbon Dioxide Anion Gap BUN Creatinine GFR Calculation BUN/Creatinine Ratio Glucose POC Glucose 154 H 162 H Calculated Osmolality Calcium Magnesium 03/31/17 03/31/17 03/31/17 05:22 07:15 11:50 WBC RBC Hgb Hct MCV MCH MCHC RDW Plt Count MPV Neut % (Auto) Lymph % (Auto) [place] % (Auto) Eos % (Auto) Baso % (Auto) Neut # (Auto) Lymph # (Auto) [place] # (Auto) Eos # (Auto) Baso # (Auto) Immature Gran % Nucleated RBC % Immature Gran # Nucleated RBCs # Immature Plt Fraction Sodium 138 Potassium 4.3 Chloride 103 Carbon Dioxide 24 Anion Gap 15.3 H BUN 47 H D Creatinine 6.40 H GFR Calculation 13 BUN/Creatinine Ratio 7.00 Glucose 202 H POC Glucose 196 H 176 H Calculated Osmolality 292.7 Calcium 7.2 L Magnesium 2.2 - Diagnostic Findings Procedure: Chest x-ray: report reviewed by me <Maren Kingsley - Last Filed: 03/31/17 17:36> Cardiology - PN: Subj Interval history: Tina agree. We will sign off since her plans to discharge him tomorrow. Exam (Progress Note) - Constitutional Vitals: Period Temp Pulse Resp BP Sys/Figueroa Pulse Ox Last 24 Hr 97.6 F-98.9 F 63-99 16-21 124-141/63-89 93-99 Result/EKG - Labs CBC & BMP: 03/31/17 05:22 03/31/17 05:22 Labs: Laboratory Results - last 24 hr 03/30/17 03/30/17 03/31/17 17:57 19:57 05:22 WBC 5.4 RBC 3.79 L Hgb 11.6 L Hct 34.7 L MCV 91.6 MCH 31 MCHC 33.4 RDW 16.8 Plt Count 172 MPV 10.0 Neut % (Auto) 77.0 H Lymph % (Auto) 11.5 L [place] % (Auto) 8.5 Eos % (Auto) 1.9 Baso % (Auto) 0.2 Neut # (Auto) 4.2 Lymph # (Auto) 0.6 L [place] # (Auto) 0.5 Eos # (Auto) 0.1 Baso # (Auto) 0.0 Immature Gran % 0.9 Nucleated RBC % 0.0 Immature Gran # 0.05 Nucleated RBCs # 0.00 Immature Plt Fraction 0.0 Sodium Potassium Chloride Carbon Dioxide Anion Gap BUN Creatinine GFR Calculation BUN/Creatinine Ratio Glucose POC Glucose 154 H 162 H Calculated Osmolality Calcium Magnesium 03/31/17 03/31/17 03/31/17 05:22 07:15 11:50 WBC RBC Hgb Hct MCV MCH MCHC RDW Plt Count MPV Neut % (Auto) Lymph % (Auto) [place] % (Auto) Eos % (Auto) Baso % (Auto) Neut # (Auto) Lymph # (Auto) [place] # (Auto) Eos # (Auto) Baso # (Auto) Immature Gran % Nucleated RBC % Immature Gran # Nucleated RBCs # Immature Plt Fraction Sodium 138 Potassium 4.3 Chloride 103 Carbon Dioxide 24 Anion Gap 15.3 H BUN 47 H D Creatinine 6.40 H GFR Calculation 13 BUN/Creatinine Ratio 7.00 Glucose 202 H POC Glucose 196 H 176 H Calculated Osmolality 292.7 Calcium 7.2 L Magnesium 2.2 03/31/17 03/31/17 16:02 16:41 WBC RBC Hgb Hct MCV MCH MCHC RDW Plt Count MPV Neut % (Auto) Lymph % (Auto) [place] % (Auto) Eos % (Auto) Baso % (Auto) Neut # (Auto) Lymph # (Auto) [place] # (Auto) Eos # (Auto) Baso # (Auto) Immature Gran % Nucleated RBC % Immature Gran # Nucleated RBCs # Immature Plt Fraction Sodium Potassium Chloride Carbon Dioxide Anion Gap BUN Creatinine GFR Calculation BUN/Creatinine Ratio Glucose POC Glucose 113 H 116 H Calculated Osmolality Calcium Magnesium Jann Skaggs Bonnie E, NP, personally performed the services described in this documentation, ascribed by Germania Soto RN in my presence, and it is both accurate and complete 530 .
--- NOTE | 2017-03-31 17:00 | Hospitalist Progress Note ---
Assessment and Plan (1) Essential (primary) hypertension Status: Chronic Assessment and plan: Continue low dose coreg Current Visit: No (2) Type 2 diabetes mellitus Status: Chronic Assessment and plan: Lantus 5 units daily Current Visit: No (3) ESRD (end stage renal disease) on dialysis Status: Chronic Assessment and plan: HD again today Current Visit: No (4) Acute respiratory failure Status: Acute Current Visit: Yes (5) Pleural effusion, right Status: Acute Assessment and plan: Pulmonary assisting Pigtail catheter removed today Current Visit: Yes Hospitalist: Subjective Interval history: No acute events overnight. Chest tube has been removed. He is seen ambulating around his room after HD. Exam - Constitutional Vitals: Period Temp Pulse Resp BP Sys/Figueroa Pulse Ox Last 24 Hr 97.6 F-98.9 F 63-99 16-21 124-141/63-89 93-99 General appearance: over weight - Head Head exam: Present: normocephalic, atraumatic - Eye Eye exam: Present: EOMI Pupils: Present: LEELA - ENT ENT exam: Present: normal exam - Neck Neck exam: Present: normal inspection - Respiratory Respiratory exam: Present: clear to auscultation bilaterally. Absent: wheezes - Cardiovascular Cardiovascular exam: Present: regular rate and rhythm - GI/Abdominal GI/Abdominal exam: Present: normal bowel sounds, soft. Absent: tenderness, rebound - Extremities Exam Extremities exam: Present: normal inspection - Back Exam Back exam: Present: normal inspection - Neurological Exam Neurological exam: Present: alert, oriented X3 - Psychiatric Psychiatric exam: Present: normal affect, normal mood - Skin Skin exam: Present: warm, intact Results - Labs CBC & BMP: 03/31/17 05:22 03/31/17 05:22
[2017-04-01] MEDS: ALBUTEROL/IPRATROPIUM 3 ML NEB RESP TX SCH ×6 (03:32→23:52)
[2017-04-01] MEDS: INSULIN LISPRO 100 UNIT/ML SUBCUT SCH ×4 (07:33→20:31)
[2017-04-01 07:39] LABS: Calcium 7.6 MG/DL (8.5-10.1); Magnesium 2.2 MG/DL (1.8-2.4); Osmolality,Calculated 291.4 MOS/KG (273-304); Potassium 4.4 MMOL/L (3.5-5.1)
[2017-04-01] MEDS: INSULIN GLARGINE 100 UNIT/ML SUBCUT SCH (08:06)
[2017-04-01] MEDS: PANTOPRAZOLE 40 MG TABLET PO SCH (08:07)
[2017-04-01] MEDS: CALCIUM ACETATE 667 MG CAPSULE PO SCH ×3 (08:07→17:10)
[2017-04-01] MEDS: ASPIRIN EC 81 MG TABLET PO SCH (08:07)
[2017-04-01] MEDS: CARVEDILOL 3.125 MG TABLET PO SCH ×2 (08:07→20:07)
--- NOTE | 2017-04-01 10:00 | Pulmonology Progress Note ---
Pulmonary - PN: Subj Interval history: Patient is a 61-year-old black man that is on dialysis. He came in with anasarca and a large right pleural effusion. He had a pleural catheter placed and the fluid was drained. The catheter was removed yesterday. He says he is feeling much better and is breathing better. He is not having any chest pain now. He will probably have dialysis today. Overall he is feeling much better. His chest x-ray is markedly improved Exam (Progress Note) - Constitutional Vitals: Period Temp Pulse Resp BP Sys/Figueroa Pulse Ox Last 24 Hr 97.3 F-99.3 F 71-108 16-20 118-134/57-82 94-99 General appearance: normal weight, no acute distress - Head Head exam: Present: normal inspection, normocephalic - Eye Eye exam: Present: EOMI. Absent: scleral icterus Pupils: Present: LEELA - ENT ENT exam: Present: normal exam - Neck Neck exam: Present: normal inspection. Absent: lymphadenopathy, thyromegaly - Respiratory Respiratory exam: Present: clear to auscultation bilaterally, other (He has good breath sounds bilaterally and his lungs sound clearer.) - Cardiovascular Cardiovascular exam: Present: regular rate and rhythm. Absent: gallop, systolic murmur - GI/Abdominal GI/Abdominal exam: Present: soft. Absent: distended, organomegaly, tenderness - Extremities Exam Extremities exam: Present: edema (He has some brawny edema of the extremities.) . Absent: calf tenderness - Neurological Exam Neurological exam: Present: alert, oriented X3, CN II-XII intact. Absent: motor sensory deficit - Psychiatric Psychiatric exam: Present: normal affect - Skin Skin exam: Present: warm, dry Results - Labs CBC & BMP: 03/31/17 05:22 04/01/17 06:47 - Diagnostic Findings Procedure: Chest x-ray: image reviewed by me, report reviewed by me (Chest x- ray looks much better with minimal changes in the bases.) Assessment and Plan (1) ESRD (end stage renal disease) on dialysis Status: Chronic Assessment and plan: Patient has end-stage renal disease and will continue with dialysis. Current Visit: Yes (2) COPD (chronic obstructive pulmonary disease) Status: Acute Assessment and plan: The patient's breathing is much better now and will continue with bronchodilator therapy. Current Visit: Yes (3) Diabetes mellitus Status: Chronic Assessment and plan: His glucose is 123 this morning. Current Visit: Yes (4) Volume overload Status: Acute Assessment and plan: Patient had considerable volume overload but is doing much better now. His weight is down 10 kg. Current Visit: Yes (5) Pleural effusion, right Status: Acute Assessment and plan: The large pleural effusion is gone and the catheter is out. His breathing is much better. Current Visit: Yes (6) Cardiomyopathy Status: Chronic Assessment and plan: Patient has an ejection fraction of 35% and has had heart failure. He is doing much better now. Current Visit: Yes
--- NOTE | 2017-04-01 10:06 | Dialysis Note ---
Dialysis Note - Dialysis Note S: Pt seen on dialysis. No c/o. O: VSS A: ESRD on CHD. Tolerating well s complications. P: Continue routine CHD as prescribed.
[2017-04-01] MEDS: PIPERACILLIN/TAZOBACTAM 3,375 MG in SODIUM CHLORIDE 0.9% 100 ML IV SCH (13:15)
--- NOTE | 2017-04-01 17:32 | Hospitalist Progress Note ---
Assessment and Plan (1) Essential (primary) hypertension Status: Chronic Assessment and plan: Continue low dose coreg Current Visit: No (2) Type 2 diabetes mellitus Status: Chronic Assessment and plan: Lantus 5 units daily Current Visit: No (3) ESRD (end stage renal disease) on dialysis Status: Chronic Assessment and plan: HD again today Current Visit: No (4) Acute respiratory failure Status: Acute Current Visit: Yes (5) Pleural effusion, right Status: Acute Assessment and plan: Pulmonary assisting Pigtail catheter removed 03/31/17 Current Visit: Yes Hospitalist: Subjective Interval history: No acute events overnight. Patient feeling much better today, seen after HD. Plan is for discharge tomorrow. Exam - Constitutional Vitals: Period Temp Pulse Resp BP Sys/Figueroa Pulse Ox Last 24 Hr 97.0 F-99.3 F 76-108 16-20 127-150/57-73 92-99 General appearance: over weight - Head Head exam: Present: normocephalic, atraumatic - Eye Eye exam: Present: EOMI Pupils: Present: LEELA - ENT ENT exam: Present: normal exam - Neck Neck exam: Present: normal inspection - Respiratory Respiratory exam: Present: clear to auscultation bilaterally. Absent: wheezes - Cardiovascular Cardiovascular exam: Present: regular rate and rhythm - GI/Abdominal GI/Abdominal exam: Present: normal bowel sounds, soft - Extremities Exam Extremities exam: Present: normal inspection - Back Exam Back exam: Present: normal inspection - Neurological Exam Neurological exam: Present: alert, oriented X3 - Psychiatric Psychiatric exam: Present: normal affect, normal mood - Skin Skin exam: Present: warm, intact Results - Labs CBC & BMP: 03/31/17 05:22 04/01/17 06:47
[2017-04-02] MEDS: PIPERACILLIN/TAZOBACTAM 3,375 MG in SODIUM CHLORIDE 0.9% 100 ML IV SCH (03:05)
[2017-04-02] MEDS: ALBUTEROL/IPRATROPIUM 3 ML NEB RESP TX SCH ×3 (03:06→11:19)
[2017-04-02] MEDS: INSULIN LISPRO 100 UNIT/ML SUBCUT SCH (08:51)
[2017-04-02] MEDS: INSULIN GLARGINE 100 UNIT/ML SUBCUT SCH (08:51)
[2017-04-02] MEDS: CALCIUM ACETATE 667 MG CAPSULE PO SCH (08:53)
[2017-04-02] MEDS: PANTOPRAZOLE 40 MG TABLET PO SCH (08:53)
[2017-04-02] MEDS: CARVEDILOL 3.125 MG TABLET PO SCH (08:53)
[2017-04-02] MEDS: ASPIRIN EC 81 MG TABLET PO SCH (08:54)
--- NOTE | 2017-04-02 10:10 | Pulmonology Progress Note ---
Pulmonary - PN: Subj Interval history: Patient is a 61-year-old black man that is on dialysis. He came in with anasarca and a large right pleural effusion. He had a pleural catheter placed and the fluid was drained. The catheter was removed yesterday. He says he is feeling much better and is breathing better. His shortness of breath has improved and his chest x-ray is stable. He did well with dialysis yesterday. He is going home today. He is feeling much better. Exam (Progress Note) - Constitutional Vitals: Period Temp Pulse Resp BP Sys/Figueroa Pulse Ox Last 24 Hr 97 F-99.1 F 97-115 16-20 127-158/65-78 93-99 Exam: General appearance: normal weight, no acute distress, he looks comfortable and alert. He is not having any respiratory distress. - Head Head exam: Present: normal inspection, normocephalic - Eye Eye exam: Present: EOMI. Absent: scleral icterus Pupils: Present: LEELA - ENT ENT exam: Present: normal exam - Neck Neck exam: Present: normal inspection. Absent: lymphadenopathy, thyromegaly - Respiratory Respiratory exam: Present: clear to auscultation bilaterally, he is moving air well and his lungs are much better. - Cardiovascular Cardiovascular exam: Present: regular rate and rhythm. Absent: gallop, systolic murmur - GI/Abdominal GI/Abdominal exam: Present: soft. Absent: distended, organomegaly, tenderness - Extremities Exam Extremities exam: Present: edema (He has some brawny edema of the extremities.) . Absent: calf tenderness - Neurological Exam Neurological exam: Present: alert, oriented X3, CN II-XII intact. Absent: motor sensory deficit - Psychiatric Psychiatric exam: Present: normal affect - Skin Skin exam: Present: warm, dry Results - Labs CBC & BMP: 03/31/17 05:22 04/01/17 06:47 Assessment and Plan (1) ESRD (end stage renal disease) on dialysis Status: Chronic Assessment and plan: Patient has end-stage renal disease and did well with dialysis yesterday. He is going home and will continue outpatient dialysis. Current Visit: Yes (2) COPD (chronic obstructive pulmonary disease) Status: Acute Assessment and plan: The patient's breathing is much better now and will continue with bronchodilator therapy. He is not having any problems now. Current Visit: Yes (3) Diabetes mellitus Status: Chronic Assessment and plan: His glucose is 174 this morning. Current Visit: Yes (4) Volume overload Status: Acute Assessment and plan: Patient had considerable volume overload but is doing much better now. His weight is down 10 kg. Current Visit: Yes (5) Pleural effusion, right Status: Acute Assessment and plan: The large pleural effusion is gone and the catheter is out. His breathing is much better. His lungs are much clearer now. Current Visit: Yes (6) Cardiomyopathy Status: Chronic Assessment and plan: Patient has an ejection fraction of 35% and has had heart failure. He is doing much better now. His volume status is stable and he is going home today. Current Visit: Yes
--- NOTE | 2017-04-02 10:39 | Discharge Summary ---
Hospital Course - Time spent with patient Time with patient DS: Greater than 30 minutes (35) Diagnosis - Discharge Diagnosis (1) Essential (primary) hypertension Status: Chronic (2) Type 2 diabetes mellitus Status: Chronic (3) ESRD (end stage renal disease) on dialysis Status: Chronic (4) Acute respiratory failure Status: Resolved (5) Pleural effusion, right Status: Resolved Discharge Plan - Discharge Data Disposition: Disch To Home/Self Care Condition at Discharge: Stable Discharge Diet: low salt diet Activity: increase activity as tolerated Weight Bearing at Discharge: weight bear as tolerated Contact your physician if you experience:: Shortness of breath - Discharge Medications New Carvedilol [Coreg] 3.125 mg PO BID #60 tablet Continue Calcium Acetate 667 mg PO TID W/MEALS Insulin Regular, Human [NovoLIN R] 2 unit SUBCUT BID Discontinued Carvedilol [Coreg] 25 mg PO BID #60 tablet - Follow Up or Referral - Forms/Instructions Exam - Constitutional Vitals: Period Temp Pulse Resp BP Sys/Figueroa Pulse Ox Last 24 Hr 97 F-99.1 F 97-115 16-20 127-158/65-78 93-99 General appearance: over weight - Head Head exam: Present: normocephalic, atraumatic - Eye Eye exam: Present: EOMI Pupils: Present: LEELA - ENT ENT exam: Present: normal exam - Neck Neck exam: Present: normal inspection - Respiratory Respiratory exam: Present: clear to auscultation bilaterally. Absent: rhonchi, wheezes - Cardiovascular Cardiovascular exam: Present: regular rate and rhythm - GI/Abdominal GI/Abdominal exam: Present: normal bowel sounds, soft. Absent: tenderness, rebound - Extremities Exam Extremities exam: Present: normal inspection - Back Exam Back exam: Present: normal inspection - Neurological Exam Neurological exam: Present: alert, oriented X3 - Psychiatric Psychiatric exam: Present: normal affect, normal mood - Skin Skin exam: Present: warm, intact Discharge Results Procedures and tests throughout hospitalization: Pending Orders 03/27/17 09:29 Cytology Request Routine 03/27/17 10:50 AFB Culture/Smears Routine Fungal Culture w/ Prep Routine Labs on day of discharge: Labs from last 24 hours 04/02/17 04/01/17 04/01/17 07:20 20:29 16:14 POC Glucose 174 H 210 H 208 H 04/01/17 13:05 POC Glucose 201 H DS: Provider Date of admission: 03/25/17 21:37 Primary care physician: Phill Almeida MD Attending physician on admission: Domingo Stone MD Consults: 03/25/17 21:37 Consult to Physician [CONS] Routine Comment: esrd need dialysis Consulting Provider: Phill Almeida Consult to Specialist Group: Nephrology When should Consulting Provider be notified: In am Person Notified: MD aware 03/25/17 21:47 Consult to Physician [CONS] Routine Comment: pt with chf pleural effusion Consulting Provider: Jose Rockwell Consult to Specialist Group: Cardiology When should Consulting Provider be notified: In am Person Notified: MD aware 03/27/17 09:31 Consult to Pharmacy [CONS] Routine Reason for Pharmacy Consult: Dose/Manage Antibiotics Comment: dialysis patient 03/28/17 08:49 Consult to Physician [CONS] Routine Comment: reoccurring right pleural effusion Consulting Provider: Manpreet Gay Person Notified: Md giordano Discharging clinician: Dina Corbett MD
[2017-04-02 11:37] VITALS: BP 148/66
--- NOTE | 2017-04-02 12:18 | Nephrology Progress Note ---
Nephrology - PN: Subj Interval history: Pt denies SOB/pain. Dressed and ready for discharge. Tolerated HD yesterday s complications. Exam (PN)-Nephrology - Vital Signs Vital signs: Period Temp Pulse Resp BP Sys/Figueroa Pulse Ox Last 24 Hr 97 F-99.1 F 97-115 16-20 127-158/65-78 93-99 - General Appearance General appearance: well-developed, well-nourished EENT: ATNC, PERRL Neck: no JVD, no thyromegaly Respiratory: no kyphosis, no scoliosis Cardiology: no murmurs, no rub Gastrointestinal: normoactive bowel sounds, no tenderness Integumentary: no rash, warm and dry Neurologic: no focal deficit, no asterixis Musculoskeletal: no deformities, no erythema Psychiatric: mood/affect appropriate, cooperative - Lab 03/31/17 05:22 04/01/17 06:47 Most recent lab results ABG pH 7.371 (7.35-7.45) 03/25/17 22:30 ABG pCO2 42.9 MM HG (35-48) 03/25/17 22:30 ABG pO2 60.5 MM HG (80-95) L 03/25/17 22:30 ABG HCO3 24.3 MMOL/L (20-26) 03/25/17 22:30 ABG O2 Saturation 91.1 % (95-100) L 03/25/17 22:30 Calcium 7.6 MG/DL (8.5-10.1) L 04/01/17 06:47 Magnesium 2.2 MG/DL (1.8-2.4) 04/01/17 06:47 Assessment and Plan (1) End stage renal disease on dialysis Problem details: No acute indication for HD today. Probably 6-7 kg above true dry weight. Status: Chronic Assessment and plan: Follow up with outpt HD unit. Specialty Discharge - Follow Up or Referrals
== END 2017-04-02 12:09 | disposition home or self-care (01) | DRG 291 ==
LOC: N.ED 19:12 → SUATTDRO 21:37 → N.EDINP 21:37 → N.TELEN 22:15 → N.CC 03-27 11:14 → N.5E 03-29 14:43
PROVIDERS: ADMIT Internal Medicine; ATTEND Internal Medicine